=== PATIENT | male | born 1960 ===

== ENCOUNTER 2016-12-06 12:45 | Emergency (ER) | payer OTHER ==
[2016-12-06 12:50] VITALS: RESP 18; TEMP 97.9
[2016-12-06 12:52] VITALS: BMI 25.6
[2016-12-06] MEDS ORDERED: Oxycodone/Acetaminophen 5/325 mg Tab PO STA (13:00)
[2016-12-06] MEDS ORDERED: Oxycodone/Acetaminophen 5/325 mg Tab ONE (13:01)
[2016-12-06] MEDS ORDERED: Lidocaine 2% Inj (20ml) INFIL ONE (13:07)
--- NOTE | 2016-12-06 13:07 | C.PDOC ---
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 Patient sustained laceration to dorsum of right hand. He denies limited ROM or numbness. Time Seen by Provider: 12/06/16 13:00 Chief Complaint (Nursing): Abnormal Skin Integrity History Per: Patient History/Exam Limitations: no limitations Onset/Duration Of Symptoms: Mins Current Symptoms Are (Timing): Still Present Location Of Injury: Right: Hand Quality Of Symptoms: Painful, Swollen. denies: Itching, Draining Recent travel outside of the [place]: No Past Medical History Reviewed: Historical Data, Nursing Documentation, Vital Signs Vital Signs: Last Vital Signs Temp 97.9 F 12/06/16 12:45 Pulse 75 12/06/16 13:59 Resp 18 12/06/16 13:59 BP 148/75 12/06/16 13:59 Pulse Ox 99 12/06/16 14:28 Family History: States: Unknown Family Hx - Social History Hx Alcohol Use: No Hx Substance Use: No - Immunization History Hx Tetanus Toxoid Vaccination: No Hx Influenza Vaccination: No Hx Pneumococcal Vaccination: No Review Of Systems Constitutional: Negative for: Fever, Chills Cardiovascular: Negative for: Chest Pain Respiratory: Negative for: Shortness of Breath Gastrointestinal: Negative for: Nausea, Vomiting Musculoskeletal: Positive for: Hand Pain (right hand pain, swelling, and laceration) Neurological: Negative for: Numbness Physical Exam - Physical Exam Appears: Non-toxic, No Acute Distress Skin: Warm, Dry Head: Atraumatic, Normacephalic Eye(s): bilateral: Normal Inspection Neck: Normal ROM, Supple Chest: Symmetrical, No Deformity Extremity: Normal ROM, Tenderness (to right hand dorsum ), No Pedal Edema, No Calf Tenderness, Capillary Refill (good capillary refill, less than two seconds ), Swelling (Moderate swelling to right hand), Other (6 cm serpentine irregular laceration with contused tissue ) Pulses: Right Radial: Normal Neurological/Psych: Oriented x3, Normal Speech Gait: Steady ED Course And Treatment O2 Sat by Pulse Oximetry: 99 (room air ) Pulse Ox Interpretation: Normal Progress Note: Right hand X-ray was ordered and patient was given Percocet and Tetanus shot. Xray showed no fractures. Laceration repair performed by BRITNEY, patient tolerated well. Bacitracin and sterile dressing was applied. Patient given instructions on wound care and to return for suture removal in 10 days Laceration - Laceration Repair Righ hand laceration Wound Length (In cm): 6 cm Description Of Wound: Irregular, Contused Tissue Wound Cleansed With: Betadine, Sterile Saline Anesthesia: Lidocaine 2% Wound Examination: Irrigated With Saline, No FB With Wound Exploration, No Tendon Injury With Wound Exploration Wound Closure: Suture (9 sutures ) Suture Technique And Material Used: Running (1 running intradermal with 4-0 vicryl), Interrupted (9 sutures), Nylon (4-0) Wound Complexity: Intermediate Disposition Counseled Patient/Family Regarding: Diagnosis, Need For Followup, Rx Given - Disposition Referrals: Clinic,Med Surg [Primary Care Provider] - Disposition: HOME/ ROUTINE Disposition Time: 13:44 Condition: STABLE Additional Instructions: Mantenga el elizabeth limpia y seca. Puede lavarse suavemente con agua y jabn, no use alcohol ni solucin de yodo. Cambie el apsito 1-2 veces al da. Regrese a ER si se presenta fiebre, enrojecimiento o hinchazn alrededor de la herida, pus en la herida. Por favor, siga con henderson mdico de cabecera, clnica, o atenci n de urgencia para la eliminacin de sutura en 10 sethi Keep area clean and dry. May wash gently with soap and water, do not use alcohol or iodine solution. Change dressing 1-2 times daily. Return to ER if fever occurs, redness or swelling around wound, pus in the wound. Please follow up with your primary doctor, clinic, or urgent care for suture removal in 10 days Prescriptions: traMADol [Ultram] 50 mg PO Q8 #14 tab Instructions: Care For Your Stitches (ED) Forms: [employer] (Amharic), Work Excuse Print Language: IRISH - POA Present On Arrival: Falls Or Trauma - Clinical Impression Clinical Impression: Laceration of hand, Contusion of hand, right - Scribe Statement The provider has reviewed the documentation as recorded by the Scribe Ellen Canela All medical record entries made by the Scribe were at my direction and personally dictated by me. I have reviewed the chart and agree that the record accurately reflects my personal performance of the history, physical exam, medical decision making, and the department course for this patient. I have also personally directed, reviewed, and agree with the discharge instructions and disposition.
--- NOTE | 2016-12-06 13:09 | RAD ---
PROCEDURE: Right Hand Radiographs. HISTORY: post trauma COMPARISON: None available. FINDINGS: Suboptimal lateral view. BONES: Question irregularity about the contour of the hamate, radial aspect. No acute displaced fracture identified. JOINTS: No dislocation. SOFT TISSUES: Subcutaneous emphysema. No evidence of radiopaque foreign body. OTHER FINDINGS: None. IMPRESSION: Subcutaneous emphysema. Question irregularity about the contour of the hamate, radial aspect. Recommend clinical correlation and wrist radiographs for further evaluation.
[2016-12-06] MEDS ORDERED: Lidocaine 2% Inj (20ml) ONE (13:10)
[2016-12-06] MEDS ORDERED: Bacitracin 500 Units/gm Oint Foilpak UD ONE (13:11)
[2016-12-06 13:59] VITALS: BP 148/75; PULSE 75
[2016-12-06 14:26] VITALS: O2SAT 99
== END 2016-12-06 14:00 | disposition home or self-care (01) ==
LOC: C.ER 12:45 → SUPCPDRO 12:45 → C.ER 14:00
DX: S61.411A Laceration without foreign body of right hand, initial encounter (principal); W31.9XXA Contact with unspecified machinery, initial encounter; Y93.89 Activity, other specified; Y92.89 Other specified places as the place of occurrence of the external cause; Y99.0 Civilian activity done for income or pay

== ENCOUNTER 2016-12-13 16:24 | Inpatient (IN) | payer OTHER ==
[2016-12-13 16:41] VITALS: BMI 22.5
[2016-12-13] MEDS ORDERED: Piperacillin/Tazobact 3.375 gm 100 ML IV STA (17:11)
[2016-12-13] MEDS ORDERED: Vancomycin 1 GM 1 GM/250 ML BAG IV ONE (17:15)
--- NOTE | 2016-12-13 17:52 | C.PDOC ---
History Of Present Illness 56 y/o male presents to ED for wound check. Patient reports he sustained an injury to his right hand 7 days ago and had stitches placed at ER. Patient reports he noticed pus draining from the site 2 days ago and also notes increased swelling to the area. Denies fever or chills. Time Seen by Provider: 12/13/16 16:54 Chief Complaint (Nursing): Wound Check History Per: Patient History/Exam Limitations: no limitations Onset/Duration Of Symptoms: Days Ago Current Symptoms Are (Timing): Worse Location Of Injury: Right: Hand, Posterior: Hand Recent travel outside of the [place]: No Past Medical History Reviewed: Historical Data, Nursing Documentation, Vital Signs Vital Signs: Last Vital Signs Temp 98.2 F 12/13/16 16:41 Pulse 77 12/13/16 16:41 Resp 18 12/13/16 16:41 BP 156/90 H 12/13/16 16:41 Pulse Ox 100 12/13/16 18:47 - Medical History PMH: No Chronic Diseases Family History: States: Unknown Family Hx - Social History Hx Alcohol Use: No Hx Substance Use: No - Immunization History Hx Tetanus Toxoid Vaccination: No Hx Influenza Vaccination: No Hx Pneumococcal Vaccination: No Review Of Systems Except As Marked, All Systems Reviewed And Found Negative. Constitutional: Negative for: Fever, Chills Skin: Positive for: Other (drainage from wound right hand, +swelling). Negative for: Rash Neurological: Negative for: Weakness, Numbness Physical Exam - Physical Exam Appears: Non-toxic, No Acute Distress Skin: Normal Color, Warm, Dry Head: Atraumatic, Normacephalic Eye(s): bilateral: Normal Inspection Neck: Normal ROM Cardiovascular: Rhythm Regular Respiratory: Normal Breath Sounds Extremity: Normal ROM, Capillary Refill (< 2 sec.), No Deformity, Other ( Moderate swelling to right hand. Erythema surrounding laceration of dorsum of right hand. Purulent discharge from center of wound. Sutures intact. Pulses intact and normal. ) Extremity: Left: Normal Color And Temperature, Normal ROM Pulses: Left Radial: Normal, Right Radial: Normal Neurological/Psych: Oriented x3, Normal Speech, Normal Motor, Normal Sensation Gait: Steady ED Course And Treatment - Laboratory Results Result Diagrams: 12/13/16 17:51 12/13/16 17:51 Lab Interpretation: No Acute Changes O2 Sat by Pulse Oximetry: 100 (RA) Pulse Ox Interpretation: Normal Medical Decision Making Medical Decision Making: Impression: Cellulitis Case discussed with Dr Puentes who also evaluated patient and agrees patient needs IV antibiotics and recommends admission Plan: * Labs * IV Zosyn and Vanco * Cultures Progress: Labs reviewed, no leukocytosis shift or bands. Plan is to admit patient and treat with IV antibiotics. The patient declines admission as recommended for cellulitis and treatment with IV Zosyn and Vanco. This action is against my medical advice to the patient and with informed refusal. The patient was told that this evaluation is necessary and a full explanation of the rationale was given. The risks of refusing were explained to the patient and include, but are not limited to, worsening cellulitis, sepsis, osteomyelitis, compartment syndrome, and permanent disability from untreated condition. The patient has the capacity to make this decision and has the capacity to understand the clinical situation and my explanation of the risks of refusing this admission. The patient voluntarily accepts these risks. Patient states he does not wish to stay in the hospital tonight but will try to return tomorrow. Patient signed AMA form. Disposition - Disposition Disposition: AGAINST MEDICAL ADVICE Disposition Time: 18:43 Condition: STABLE Additional Instructions: Usted tiene infeccin de la mano y sr optado por firmar en contra de los consejos mdicos para la admisin de la infeccin y el tratamiento con antibi ticos intravenosos Por favor asegrese de leah antibiticos y recomendar el regreso al [facility] para chequeo de herida y admisin Prescriptions: Clindamycin [Cleocin] 300 mg PO TID #21 cap Instructions: Cellulitis (DC), Against Medical Advice (ED) Forms: [employer] (Greenlandic) Print Language: IRISH - POA Present On Arrival: None - Clinical Impression Clinical Impression: Cellulitis of right hand, Left against medical advice - PA / JEWELRY ENAMELER / Resident Statement MD/DO has reviewed & agrees with the documentation as recorded. - Scribe Statement The provider has reviewed the documentation as recorded by the Scribe SM All medical record entries made by the Scribe were at my direction and personally dictated by me. I have reviewed the chart and agree that the record accurately reflects my personal performance of the history, physical exam, medical decision making, and the department course for this patient. I have also personally directed, reviewed, and agree with the discharge instructions and disposition.
[2016-12-13] MEDS ORDERED: Vancomycin 1 GM 1 GM/250 ML BAG IVPB ONE (17:53)
[2016-12-13 17:58] LABS: BASO % 0.5 % (0.0-2.0); EOS # 0.1 K/uL (0.0-0.7); EOS % 1.5 % (0.0-4.0); HEMATOCRIT 33.3 % (35.0-51.0); LYMPH # 1.8 K/uL (1.0-4.3); LYMPH % 28.4 % (20.0-40.0); MEAN CELL VOLUME 86.4 fL (80.0-94.0); MEAN CORPUSCULAR HEMOGLOBIN 29.4 pg (27.0-31.0); MEAN CORPUSCULAR HGB CONC 34.1 g/dL (33.0-37.0); MEAN PLATELET VOLUME 7.9 fL (7.2-11.7); MONO # 0.5 K/uL (0.0-0.8); MONO % 8.6 % (0.0-10.0); RED CELL DISTRIBUTION WIDTH 13.7 % (11.5-14.5); WHITE BLOOD COUNT 6.3 K/uL (4.8-10.8)
[2016-12-13 18:06] LABS: CHLORIDE 103 mmol/L (98-107); POTASSIUM 4.5 mmol/L (3.6-5.2); RBC URINE 1 /hpf (0-3); SODIUM 141 mmol/L (132-148); TRANSITIONAL EPITHIAL < 1 /hpf (0-3); URINE BACTERIA RARE (<OCC); URINE BILIRUBIN NEGATIVE (NEGATIVE); URINE BLOOD NEGATIVE (NEGATIVE); URINE COLOR Yellow (YELLOW); URINE GLUCOSE (UA) NORMAL (Normal); URINE KETONE NEGATIVE (NEGATIVE); URINE LEUKOCYTE ESTERASE NEG Leu/uL (Negative); URINE PROTEIN NEGATIVE (NEGATIVE); URINE UROBILINOGEN NORMAL mg/dL (0.2-1.0); WBC URINE 1 /hpf (0-5)
[2016-12-13 18:08] LABS: BILIRUBIN,TOTAL 0.4 mg/dL (0.2-1.3); GFR AFRICAN-AMERICAN > 60
[2016-12-13 18:09] LABS: ALKALINE PHOSPHATASE 82 U/L (38-126); ALT/SGPT 52 U/L (21-72); AST/SGOT 36 U/L (17-59); BLOOD UREA NITROGEN 23 mg/dL (9-20); CARBON DIOXIDE 26 mmol/L (22-30); GLUCOSE,RANDOM 82 mg/dL (75-110)
[2016-12-13 18:10] LABS: CALCIUM 9.1 mg/dl (8.6-10.4)
[2016-12-13] MEDS ORDERED: Piperacillin/Tazobact 3.375 gm 100 ML IVPB ONE (18:20)
[2016-12-14] MEDS ORDERED: Iodixanol 320 mg/ml 150 ml Bottle IV ONE (00:33)
--- NOTE | 2016-12-14 01:44 | CT ---
EXAM: CT Right Upper Extremity With Intravenous Contrast, Hand CLINICAL HISTORY: 56 years old, male; Pain and signs and symptoms; Mass or lump and swelling and other: Abcess; Hand; Right; Additional info: Prior xray of rt hand faxed over to [facility] TECHNIQUE: Axial computed tomography images of the right hand with intravenous contrast. All CT scans at this facility use one or more dose reduction techniques, viz.: automated exposure control; ma/kV adjustment per patient size (including targeted exams where dose is matched to indication; i.e. head); or iterative reconstruction technique. Coronal and sagittal reformatted images were created and reviewed. CONTRAST: 100 mL of VISI administered intravenously. COMPARISON: No relevant prior studies available. FINDINGS: Bones/joints: No acute fracture. Findings suggesting prior fracture deformity within the proximal metacarpal of the fifth digit . This No dislocation. Soft tissues: Marked soft tissue swelling over the dorsum of the right hand without a rim enhancing fluid collection to suggest acute abscess. No abnormal contrast enhancement. IMPRESSION: Marked soft tissue swelling, without rim-enhancing fluid collection.
--- NOTE | 2016-12-14 04:06 | CP.PCM.HP ---
<Jackson Velazco E - Last Filed: 12/14/16 09:00> History of Present Illness - History of Present Illness History of Present Illness: CC: Right Hand Cellulitis HPI: Patient is a 56 year old male with no past medical history who presents to the ED with complaints of right hand swelling and pus drainage s/p laceration repair of the dorsum right hand. 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 Patient stated he reported to [facility] after the injury where he received a laceration repair and discharged with pain medication. Patient reports that he has been having swelling in the hand, pain and pus drainage for the past 2 days. Patient denies fever, chills, nausea, vomiting, chest pain, palpitation, sob, numbness but admits to some tingling in his right fingers. 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 Admits to 3 cigarettes per week but denies ETOH and illicit drug use Medications given in the ED: Zosyn 3.375gm and Vanco 1gm Present on Admission - Present on Admission Any Indicators Present on Admission: No Review of Systems - Constitutional Constitutional: absent: Chills, Fever, Night Sweats - EENT Ears: absent: Dizziness - Cardiovascular Cardiovascular: absent: Chest Pain, Chest Pain at Rest, Diaphoresis, Dyspnea, Lightheadedness, Palpitations, Radiating Pain - Respiratory Respiratory: absent: Dyspnea, Dyspnea on Exertion - Gastrointestinal Gastrointestinal: absent: Abdominal Pain, Constipation, Diarrhea, Nausea, Vomiting - Musculoskeletal Musculoskeletal: Loss of Height, Tingling. absent: Numbness Additional comments: Right hand tingling - Neurological Neurological: Tingling. absent: Dizziness, Numbness, Paresthesias, Weakness Past Patient History - Past Medical History & Family History Past Medical History?: Yes - Past Social History Smoking Status: Unknown If Ever Smoked - CARDIAC Hx Cardiac Disorders: No - PULMONARY Hx Respiratory Disorders: No - NEUROLOGICAL Hx Neurological Disorder: No - HEENT Hx HEENT Problems: Yes Other/Comment: pt uses prescription eyeglasses - RENAL Hx Chronic Kidney Disease: No - ENDOCRINE/METABOLIC Hx Endocrine Disorders: No - HEMATOLOGICAL/ONCOLOGICAL Hx Blood Disorders: No - INTEGUMENTARY Hx Dermatological Problems: No - MUSCULOSKELETAL/RHEUMATOLOGICAL Hx Musculoskeletal Disorders: No Hx Falls: No - GASTROINTESTINAL Hx Gastrointestinal Disorders: No - GENITOURINARY/GYNECOLOGICAL Hx Genitourinary Disorders: No - PSYCHIATRIC Hx Psychophysiologic Disorder: No Hx Substance Use: No - SURGICAL HISTORY Hx Surgeries: No - ANESTHESIA Hx Anesthesia: No Hx Anesthesia Reactions: No Hx Malignant Hyperthermia: No Has any member of the family had a problem w/ anesthesia?: No Meds Home Medications: Home Medication List Medication Instructions Recorded Confirmed Type Clindamycin [Cleocin] 300 mg PO TID #21 cap 12/13/16 Rx Allergies/Adverse Reactions: Allergies Allergy/AdvReac Type Severity Reaction Status Date / Time No Known Allergies Allergy Verified 12/13/16 16:41 Physical Exam - Constitutional Appears: No Acute Distress - Head Exam Head Exam: ATRAUMATIC - Eye Exam Eye Exam: EOMI, Normal appearance - ENT Exam ENT Exam: Mucous Membranes Moist, Normal Exam - Respiratory Exam Respiratory Exam: Clear to Auscultation Bilateral, NORMAL BREATHING PATTERN - Cardiovascular Exam Cardiovascular Exam: REGULAR RHYTHM, +S1, +S2 - GI/Abdominal Exam GI & Abdominal Exam: Normal Bowel Sounds, Soft - Extremities Exam Extremities exam: Positive for: normal inspection. Negative for: calf tenderness, pedal edema, tenderness - Neurological Exam Neurological exam: Alert, Oriented x3 - Psychiatric Exam Psychiatric exam: Normal Affect, Normal Mood - Skin Skin Exam: Normal Color, Warm Results - Vital Signs Recent Vital Signs: Last Vital Signs Temp 98.5 F 12/14/16 00:50 Pulse 84 12/14/16 02:11 Resp 20 12/14/16 02:11 BP 137/86 12/14/16 00:50 Pulse Ox 98 12/14/16 02:11 - Labs Result Diagrams: 12/13/16 17:51 12/13/16 17:51 Assessment & Plan (1) Cellulitis of right hand Assessment and Plan: On admission: * Afebrile and no leukocytosis Labs: * Wound Culture, Gram Stain: Gram positive cocci. F/u Culture * F/u blood culture Imaging: CT right hand: Marked soft tissue swelling, without rim-enhancing fluid collection to suggest acute abscess Medications: * Clindamycin 600mg IV Q6H * Toradol 15mg IV Q6H Surgical consult, Dr. ELGazzar---> Help appreciated * F/u recommendation Status: Acute (2) Prophylactic measure Assessment and Plan: SCDs Protonix 40mg PO daily Florastor 250mg PO BID Status: Acute <Keith Mark P - Last Filed: 12/17/16 19:35> Results - Vital Signs Recent Vital Signs: Last Vital Signs Temp 97.5 F L 12/17/16 16:27 Pulse 66 12/17/16 16:27 Resp 20 12/17/16 16:27 BP 132/75 12/17/16 16:27 Pulse Ox 98 12/17/16 16:27 - Labs Result Diagrams: 12/17/16 07:37 12/17/16 07:37 Labs: Laboratory Results - last 24 hr 12/17/16 12/17/16 07:37 07:37 WBC 5.7 RBC 4.09 L Hgb 11.6 L Hct 35.4 MCV 86.5 MCH 28.5 MCHC 32.9 L RDW 13.6 Plt Count 370 MPV 7.9 Neut % (Auto) 59.7 Lymph % (Auto) 30.5 [place] % (Auto) 6.8 Eos % (Auto) 2.5 Baso % (Auto) 0.5 Neut # 3.4 Lymph # 1.7 [place] # 0.4 Eos # 0.1 Baso # 0.0 Sodium 141 Potassium 5.1 Chloride 101 Carbon Dioxide 27 Anion Gap 18 BUN 22 H Creatinine 1.0 Est GFR ( Amer) > 60 Est GFR (Non-Af Amer) > 60 Random Glucose 94 Calcium 9.2 Total Bilirubin 0.3 AST 18 ALT 34 Alkaline Phosphatase 87 Total Protein 7.5 Albumin 3.4 L Globulin 4.1 H Albumin/Globulin Ratio 0.8 L Attending/Attestation - Attestation I have personally seen and examined this patient.: Yes I have fully participated in the care of the patient.: Yes I have reviewed all pertinent clinical information: Yes Notes (Text): See note on the same day.
--- NOTE | 2016-12-14 04:44 | CP.PCM.PN ---
Subjective - Date & Time of Evaluation Date of Evaluation: 12/14/16 Time of Evaluation: 04:40 - Subjective Subjective: Right hand laceration repair, from crushing injury 7 days back, presenting for swelling in hand, pain x2 days, draining puss today. Denies fever, not on abx, no foreign body, CT hand negative for abscess. Gram stain shows gm positive cocci, patient started on clindamycin iv. Dr Lopez, hand surgery consulted. Patient may need removal of some or most of sutures contaminated with puss. Objective - Vital Signs/Intake and Output Vital Signs (last 24 hours): Temp Pulse Resp BP Pulse Ox 98.5 F 84 20 137/86 98 12/14/16 00:50 12/14/16 02:11 12/14/16 02:11 12/14/16 00:50 12/14/16 02:11 - Medications Medications: Current Medications Clindamycin Phosphate (Cleocin In Normal Saline Addvantage) 600 mg in 50 mls @ 102 mls/hr IVPB Q6H JUANA Ketorolac Tromethamine (Toradol) 15 mg IVP Q6 JUANA Pantoprazole Sodium (Protonix Ec Tab) 40 mg PO DAILY JUANA Pneumococcal Polyvalent Vaccine (Pneumovax 23 Vaccine) 0.5 ml IM .ONCE ONE Stop: 12/15/16 10:01
[2016-12-14] MEDS: Clindamycin 600mg/50ml NS 600 MG/50 ML BAG IVPB SCH ×4 (04:55→21:15)
--- NOTE | 2016-12-14 04:57 | CP.PCM.CON ---
History of Present Illness - History of Present Illness History of Present Illness: Surgery: Dr. Lopez CC: right hand wound infection HPI: Patient is a 56 y/o male who present with right dorsal hand wound draining pus for the past three days. He intially presented to ER on 12/06 for right dorsal hand laceration which was primarily repaired in the ER with a 4-0 running vicryl stitch and interrupted nylons. Patient reports noticing pus about 4 days after repair as well as swelling which prompted ER visit. Patient denies f/c/n/v. PMH: denies Review of Systems - Review of Systems All systems: reviewed and no additional remarkable complaints except Review of Systems: unless stated in HPI Past Patient History - Past Medical History & Family History Past Medical History?: Yes - Past Social History Smoking Status: Unknown If Ever Smoked - CARDIAC Hx Cardiac Disorders: No - PULMONARY Hx Respiratory Disorders: No - NEUROLOGICAL Hx Neurological Disorder: No - HEENT Hx HEENT Problems: Yes Other/Comment: pt uses prescription eyeglasses - RENAL Hx Chronic Kidney Disease: No - ENDOCRINE/METABOLIC Hx Endocrine Disorders: No - HEMATOLOGICAL/ONCOLOGICAL Hx Blood Disorders: No - INTEGUMENTARY Hx Dermatological Problems: No - MUSCULOSKELETAL/RHEUMATOLOGICAL Hx Musculoskeletal Disorders: No Hx Falls: No - GASTROINTESTINAL Hx Gastrointestinal Disorders: No - GENITOURINARY/GYNECOLOGICAL Hx Genitourinary Disorders: No - PSYCHIATRIC Hx Psychophysiologic Disorder: No Hx Substance Use: No - SURGICAL HISTORY Hx Surgeries: No - ANESTHESIA Hx Anesthesia: No Hx Anesthesia Reactions: No Hx Malignant Hyperthermia: No Has any member of the family had a problem w/ anesthesia?: No Meds Home Medications: Home Medication List Medication Instructions Recorded Confirmed Type Clindamycin [Cleocin] 300 mg PO TID #21 cap 12/13/16 Rx Allergies/Adverse Reactions: Allergies Allergy/AdvReac Type Severity Reaction Status Date / Time No Known Allergies Allergy Verified 12/13/16 16:41 - Medications Medications: Current Medications Clindamycin Phosphate (Cleocin In Normal Saline Addvantage) 600 mg in 50 mls @ 102 mls/hr IVPB Q6H JUANA Ketorolac Tromethamine (Toradol) 15 mg IVP Q6 JUANA Pantoprazole Sodium (Protonix Ec Tab) 40 mg PO DAILY JUANA Pneumococcal Polyvalent Vaccine (Pneumovax 23 Vaccine) 0.5 ml IM .ONCE ONE Stop: 12/15/16 10:01 Physical Exam - Constitutional Appears: Non-toxic, No Acute Distress - Head Exam Head Exam: ATRAUMATIC, NORMOCEPHALIC - Eye Exam Eye Exam: EOMI, Normal appearance - ENT Exam ENT Exam: Mucous Membranes Moist - Respiratory Exam Respiratory Exam: NORMAL BREATHING PATTERN. absent: Respiratory Distress - Cardiovascular Exam Cardiovascular Exam: REGULAR RHYTHM. absent: Tachycardia - Extremities Exam Additional comments: right dorsal hand with irregularly shaped laceration approximately 5-6 cm in length w/ purulent fluid in center. entire dorsum of hand in edematous and erythematous. restricted finger flexion 2/2/ edema. full wrist ROM. 2+pulses. No evidence of fluctuance for drainage Results - Vital Signs Recent Vital Signs: Last Vital Signs Temp 98.5 F 12/14/16 00:50 Pulse 84 12/14/16 02:11 Resp 20 12/14/16 02:11 BP 137/86 12/14/16 00:50 Pulse Ox 98 12/14/16 02:11 - Labs Result Diagrams: 12/13/16 17:51 12/13/16 17:51 - Impressions Impression: CT: no evidence of right hand abscess Assessment & Plan - Assessment and Plan (Free Text) Assessment: 56 y/o male s/p right dorsal hand laceration repair now with cellulitis to wound Plan: -cont abx -f/u cultures -betadine soaks TID for 15 mins -keep affected extremity elevated -cont to use and exercise right hand -surgical intervention pending clinical course -further recs per Dr. John Nolasco PGY3
[2016-12-14] MEDS: Pantoprazole 40 mg EC Tab PO SCH (09:36)
[2016-12-14] MEDS ORDERED: Saccharomyces Boulardi 250 mg Cap PO SCH (10:00)
[2016-12-14 10:52] LABS: BASO % 0.4 % (0.0-2.0); EOS # 0.1 K/uL (0.0-0.7); EOS % 0.9 % (0.0-4.0); HEMATOCRIT 32.9 % (35.0-51.0); LYMPH # 1.5 K/uL (1.0-4.3); LYMPH % 24.5 % (20.0-40.0); MEAN CELL VOLUME 86.3 fL (80.0-94.0); MEAN CORPUSCULAR HEMOGLOBIN 28.8 pg (27.0-31.0); MEAN CORPUSCULAR HGB CONC 33.4 g/dL (33.0-37.0); MEAN PLATELET VOLUME 7.9 fL (7.2-11.7); MONO # 0.4 K/uL (0.0-0.8); MONO % 6.1 % (0.0-10.0); RED CELL DISTRIBUTION WIDTH 13.8 % (11.5-14.5); WHITE BLOOD COUNT 6.3 K/uL (4.8-10.8)
[2016-12-14 11:18] LABS: ALB/GLOB RATIO 0.8 (1.0-2.1); ALKALINE PHOSPHATASE 90 U/L (38-126); ALT/SGPT 41 U/L (21-72); AST/SGOT 26 U/L (17-59); BILIRUBIN,TOTAL 0.5 mg/dL (0.2-1.3); BLOOD UREA NITROGEN 20 mg/dL (9-20); CALCIUM 9.1 mg/dl (8.6-10.4); CARBON DIOXIDE 23 mmol/L (22-30); CHLORIDE 100 mmol/L (98-107); GFR AFRICAN-AMERICAN > 60; GLUCOSE,RANDOM 130 mg/dL (75-110); POTASSIUM 4.3 mmol/L (3.6-5.2); SODIUM 138 mmol/L (132-148); TOTAL PROTEIN 7.6 g/dL (6.3-8.3)
[2016-12-14] MEDS: Saccharomyces Boulardi 250 mg Cap PO SCH ×2 (11:31→17:12)
--- NOTE | 2016-12-14 14:03 | CP.PCM.PN ---
<LiveTiffany - Last Filed: 12/14/16 16:38> Subjective - Date & Time of Evaluation Date of Evaluation: 12/14/16 Time of Evaluation: 14:02 - Subjective Subjective: Patient is seen and examined at bedside. Patient denied any acute events overnight. Patient's right hand is bandaged but says he is able to flex and extend his fingers without any pain, however he has trouble with full flexion 2/ 2 swelling. Patient denied any sr/cp/sob/abd pain/f/c/n/v/d. Patient asking about results of the imaging taken of his hand. Objective - Vital Signs/Intake and Output Vital Signs (last 24 hours): Temp Pulse Resp BP Pulse Ox 98.7 F 69 20 110/62 98 12/14/16 07:08 12/14/16 07:08 12/14/16 07:08 12/14/16 07:08 12/14/16 07:08 Intake and Output: 12/14/16 12/14/16 06:59 18:59 Intake Total 170 Balance 170 - Medications Medications: Current Medications Clindamycin Phosphate (Cleocin In Normal Saline Addvantage) 600 mg in 50 mls @ 102 mls/hr IVPB Q6H [facility] Last Admin: 12/14/16 09:36 Dose: 102 mls/hr Ketorolac Tromethamine (Toradol) 15 mg IVP Q6 [facility] Last Admin: 12/14/16 11:54 Dose: 15 mg Pantoprazole Sodium (Protonix Ec Tab) 40 mg PO DAILY [facility] Last Admin: 12/14/16 09:36 Dose: 40 mg Pneumococcal Polyvalent Vaccine (Pneumovax 23 Vaccine) 0.5 ml IM .ONCE ONE Stop: 12/15/16 10:01 Saccharomyces Boulardii (Florastor) 250 mg PO BID [facility] Last Admin: 12/14/16 11:31 Dose: Not Given - Labs Labs: 12/14/16 10:43 12/14/16 10:43 - Constitutional Appears: Non-toxic, No Acute Distress - Head Exam Head Exam: NORMAL INSPECTION - Eye Exam Eye Exam: EOMI - ENT Exam ENT Exam: Mucous Membranes Moist - Respiratory Exam Respiratory Exam: Clear to Ausculation Bilateral, NORMAL BREATHING PATTERN - Cardiovascular Exam Cardiovascular Exam: REGULAR RHYTHM, +S1, +S2 - GI/Abdominal Exam GI & Abdominal Exam: Soft, Normal Bowel Sounds. absent: Distended, Tenderness - Extremities Exam Extremities Exam: absent: Pedal Edema Additional comments: Right hand bandaged and c/d/i. Swelling of fingers noted on the right. 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 No loss of sensation or paralysis of right hand. - Neurological Exam Neurological Exam: Alert, Awake, Oriented x3 - Psychiatric Exam Psychiatric exam: Normal Affect, Normal Mood - Skin Skin Exam: Dry, Intact, Normal Color, Warm Assessment and Plan - Assessment and Plan (Free Text) Assessment: Cellulitis of right hand * Afebrile and no leukocytosis Labs: * Wound Culture * Gram Stain: Gram positive cocci in clusters and chains; F/u Culture and sensitivity * F/u blood culture Imaging: CT right hand: Marked soft tissue swelling, without rim-enhancing fluid collection to suggest acute abscess Medications: * Clindamycin 600mg IV Q6H * Toradol 15mg IV Q6H Surgical consult, Dr. Waldrop * Betadine soaks 15 min TID ID Consult, Dr. Clay * Recs appreciated Prophylactic measure SCDs Protonix 40mg PO daily Florastor 250mg PO BID <Ky Post - Last Filed: 12/14/16 19:12> Objective - Vital Signs/Intake and Output Vital Signs (last 24 hours): Temp Pulse Resp BP Pulse Ox 98.4 F 69 20 128/66 97 12/14/16 15:00 12/14/16 15:00 12/14/16 15:00 12/14/16 15:00 12/14/16 15:00 Intake and Output: 12/14/16 12/15/16 18:59 06:59 Intake Total 500 Balance 500 - Medications Medications: Current Medications Clindamycin Phosphate (Cleocin In Normal Saline Addvantage) 600 mg in 50 mls @ 102 mls/hr IVPB Q6H [facility] Last Admin: 12/14/16 16:00 Dose: 102 mls/hr Ketorolac Tromethamine (Toradol) 15 mg IVP Q6 [facility] Last Admin: 12/14/16 17:12 Dose: 15 mg Pantoprazole Sodium (Protonix Ec Tab) 40 mg PO DAILY [facility] Last Admin: 12/14/16 09:36 Dose: 40 mg Pneumococcal Polyvalent Vaccine (Pneumovax 23 Vaccine) 0.5 ml IM .ONCE ONE Stop: 12/15/16 10:01 Saccharomyces Bobrittneydii (Florastor) 250 mg PO BID [facility] Last Admin: 12/14/16 17:12 Dose: 250 mg - Labs Labs: 12/14/16 10:43 12/14/16 10:43 Attending/Attestation - Attestation I have personally seen and examined this patient.: Yes I have fully participated in the care of the patient.: Yes I have reviewed all pertinent clinical information, including history, physical exam and plan: Yes Notes (Text): 12/14/16 19:07 Patient was seen and examined at 11:10 AM Exam and Assessment/Plan were thoroughly gone over with the Resident Please note that in addition to the above for exam: I removed patient's hand bandage and present on the posterior right hand: there is an irregularly shaped laceration with yellow drainage, sutures, surrounding erythema, warmth/edema. Sensation is intact. Capillary refills is 2 seconds. There is NO cyanosis and patient is able to flex/extend all fingers. NO right axillary lymph adenopathy. Awaiting evaluation by Orthopedics. Ky Post D.O.
--- NOTE | 2016-12-14 22:12 | CP.PCM.CON ---
History of Present Illness - History of Present Illness History of Present Illness: dictated Past Patient History - Past Medical History & Family History Past Medical History?: Yes - Past Social History Smoking Status: Unknown If Ever Smoked - CARDIAC Hx Cardiac Disorders: No - PULMONARY Hx Respiratory Disorders: No - NEUROLOGICAL Hx Neurological Disorder: No - HEENT Hx HEENT Problems: Yes Other/Comment: pt uses prescription eyeglasses - RENAL Hx Chronic Kidney Disease: No - ENDOCRINE/METABOLIC Hx Endocrine Disorders: No - HEMATOLOGICAL/ONCOLOGICAL Hx Blood Disorders: No - INTEGUMENTARY Hx Dermatological Problems: No - MUSCULOSKELETAL/RHEUMATOLOGICAL Hx Musculoskeletal Disorders: No Hx Falls: No - GASTROINTESTINAL Hx Gastrointestinal Disorders: No - GENITOURINARY/GYNECOLOGICAL Hx Genitourinary Disorders: No - PSYCHIATRIC Hx Psychophysiologic Disorder: No Hx Substance Use: No - SURGICAL HISTORY Hx Surgeries: No - ANESTHESIA Hx Anesthesia: No Hx Anesthesia Reactions: No Hx Malignant Hyperthermia: No Has any member of the family had a problem w/ anesthesia?: No Meds Home Medications: Home Medication List Medication Instructions Recorded Confirmed Type Clindamycin [Cleocin] 300 mg PO TID #21 cap 12/13/16 Rx Allergies/Adverse Reactions: Allergies Allergy/AdvReac Type Severity Reaction Status Date / Time No Known Allergies Allergy Verified 12/13/16 16:41 - Medications Medications: Current Medications Clindamycin Phosphate (Cleocin In Normal Saline Addvantage) 600 mg in 50 mls @ 102 mls/hr IVPB Q6H [facility] Last Admin: 12/14/16 21:15 Dose: 102 mls/hr Ketorolac Tromethamine (Toradol) 15 mg IVP Q6 [facility] Last Admin: 12/14/16 17:12 Dose: 15 mg Pantoprazole Sodium (Protonix Ec Tab) 40 mg PO DAILY [facility] Last Admin: 12/14/16 09:36 Dose: 40 mg Pneumococcal Polyvalent Vaccine (Pneumovax 23 Vaccine) 0.5 ml IM .ONCE ONE Stop: 12/15/16 10:01 Saccharomyces Boulardii (Florastor) 250 mg PO BID [facility] Last Admin: 12/14/16 17:12 Dose: 250 mg Results - Vital Signs Recent Vital Signs: Last Vital Signs Temp 98.4 F 12/14/16 15:00 Pulse 69 12/14/16 15:00 Resp 20 12/14/16 15:00 BP 128/66 12/14/16 15:00 Pulse Ox 97 12/14/16 15:00 - Labs Result Diagrams: 12/14/16 10:43 12/14/16 10:43 Labs: Laboratory Results - last 24 hr 12/14/16 12/14/16 10:43 10:43 WBC 6.3 RBC 3.82 L Hgb 11.0 L Hct 32.9 L MCV 86.3 MCH 28.8 MCHC 33.4 RDW 13.8 Plt Count 349 MPV 7.9 Neut % (Auto) 68.1 Lymph % (Auto) 24.5 [place] % (Auto) 6.1 Eos % (Auto) 0.9 Baso % (Auto) 0.4 Neut # 4.3 Lymph # 1.5 [place] # 0.4 Eos # 0.1 Baso # 0.0 Sodium 138 Potassium 4.3 Chloride 100 Carbon Dioxide 23 Anion Gap 20 BUN 20 Creatinine 0.8 Est GFR ( Amer) > 60 Est GFR (Non-Af Amer) > 60 Random Glucose 130 H Calcium 9.1 Total Bilirubin 0.5 AST 26 ALT 41 Alkaline Phosphatase 90 Total Protein 7.6 Albumin 3.4 L Globulin 4.2 H Albumin/Globulin Ratio 0.8 L
[2016-12-15] MEDS: Clindamycin 600mg/50ml NS 600 MG/50 ML BAG IVPB SCH ×4 (04:42→21:37)
--- NOTE | 2016-12-15 06:51 | CON ---
INFECTIOUS DISEASE CONSULT DATE: REQUESTING PHYSICIAN: Dr. Mark. HISTORY OF PRESENT ILLNESS: This patient is a 56-year-old male. He was admitted through emergency room yesterday. As he came in, he is status post laceration of the right hand. 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 He reported he had been having swelling and pus draining from there and the whole hand was getting swollen. He has been on IV antibiotics since last night and he says that they are helping and his fingers still remain swollen. He does have a dressing and he has some sutures on his hand, which he says thought to be removed yesterday, but has not been removed. He does have a Betadine dressing on his right hand, but he says he is getting better. Denies any other complaints. ALLERGIES: HE IS NOT ALLERGIC TO ANY MEDICINE. PAST MEDICAL HISTORY: Significant for using eye glasses, otherwise, he has no other positive history that we noted. FAMILY HISTORY: Noncontributory. MEDICATION: He has not been taking any medicines. HOME MEDICATIONS: He was on clindamycin 600 mg p.o. t.i.d., which was started yesterday. SOCIAL HISTORY: He lives with his family. 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 REVIEW OF SYSTEMS: All negative and he is not diabetic. He has no other involvement of any system. He denied any dizziness. Denied any ear, nose, and throat problem. Denies any chest pain. No shortness of breath. No abdominal pain, nausea, vomiting, or diarrhea. No joint problems and he did complain of right hand tingling and loss of height. PHYSICAL EXAMINATION: HEENT: Head is atraumatic. Pupils are reacting to light. HEENT exam is unremarkable. NECK: Supple. LUNGS: Clear. HEART: S1 and S2 is regular. ABDOMEN: Soft and nontender. No guarding. No rigidity present. EXTREMITIES: Have no edema, clubbing, or cyanosis. NEURO: He has a normal mood. Right hand is swollen and with a dressing. The fingers are swollen, but he says the swelling has been decreasing. I will wait for the surgical input. LABORATORY DATA: White count is 6.3, hemoglobin 11 and creatinine 0.8, glucose is 130 today. There is a wound culture, which is growing GPCs. Blood culture x2 are negative and there was actually a CAT scan done of the upper extremity, which shows mild soft tissue swelling without reminiscing fluid collections. PLAN: Will need antibiotics. Does not seem to like have an abscess. He is on clindamycin 600 mg q.6 hours and he seems to be doing better, so we will continue that and we will follow with other attending and he may need to have the wound opened as there is pus. Annel Clay MD
[2016-12-15 07:37] LABS: BASO % 0.5 % (0.0-2.0); EOS # 0.2 K/uL (0.0-0.7); EOS % 3.6 % (0.0-4.0); HEMATOCRIT 31.7 % (35.0-51.0); LYMPH # 1.4 K/uL (1.0-4.3); LYMPH % 29.5 % (20.0-40.0); MEAN CELL VOLUME 86.1 fL (80.0-94.0); MEAN CORPUSCULAR HEMOGLOBIN 29.2 pg (27.0-31.0); MEAN CORPUSCULAR HGB CONC 33.9 g/dL (33.0-37.0); MEAN PLATELET VOLUME 7.8 fL (7.2-11.7); MONO # 0.4 K/uL (0.0-0.8); MONO % 8.8 % (0.0-10.0); NRBC % 0.1 % (0.0-2.0); WHITE BLOOD COUNT 4.6 K/uL (4.8-10.8)
[2016-12-15 08:08] LABS: CHLORIDE 104 mmol/L (98-107); SODIUM 137 mmol/L (132-148)
[2016-12-15 08:09] LABS: POTASSIUM 4.6 mmol/L (3.6-5.2)
[2016-12-15 08:12] LABS: ALB/GLOB RATIO 0.9 (1.0-2.1); ALKALINE PHOSPHATASE 77 U/L (38-126); ALT/SGPT 41 U/L (21-72); AST/SGOT 22 U/L (17-59); BILIRUBIN,TOTAL 0.5 mg/dL (0.2-1.3); BLOOD UREA NITROGEN 31 mg/dL (9-20); CALCIUM 8.5 mg/dl (8.6-10.4); CARBON DIOXIDE 25 mmol/L (22-30); GFR AFRICAN-AMERICAN > 60; GLUCOSE,RANDOM 89 mg/dL (75-110); TOTAL PROTEIN 7.2 g/dL (6.3-8.3)
[2016-12-15] MEDS ORDERED: Pneumococcal 23-Valent Vaccine IM ONE (10:00)
[2016-12-15] MEDS: Pantoprazole 40 mg EC Tab PO SCH (11:15)
[2016-12-15] MEDS: Saccharomyces Boulardi 250 mg Cap PO SCH ×2 (13:01→17:26)
--- NOTE | 2016-12-15 18:05 | CP.PCM.PN ---
Subjective - Date & Time of Evaluation Date of Evaluation: 12/15/16 Time of Evaluation: 14:40 - Subjective Subjective: Hospitalist Progress Note Patient was seen and examined at 2:40 PM 12/15/16. 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 CT Right Hand with contrast did not show any acute fracture and did show marked soft tissue swelling without ring enhancing fluid collection. He was started on Clindamycin IV and admitted for further treatment and evaluation. Upon FULL ROS: Pounding pain in the right hand if he tries to flex the fingers but this has decreased in intensity today NO chest pain/palpitations NO SOB/cough NO abdominal pain NO n/v/d/c NO pain with urination NO paresthesias/loss of sensation NO other complaints upon FULL ROS Exam: General: AAOx3, NAD HEENT: NCA, EOMI, PERRLA, NO lymphadenopathy, NO pharyngeal erythema/exudate, Mucous Membranes are moist, Nasal Turbinates are nonedematous/nonerythematous Cardio: NS1 and NS2, NO M/R/G Respiratory: CTA Bilaterally, NO R/R/W GI: BSx4, Soft, NT, ND, NO HSM, NO guarding/rebound tenderness Ext: Pulses are strong and equal, Capillary Refill is 2 seconds, I removed patient's hand bandage and present on the posterior right hand: there is an irregularly shaped laceration with yellow drainage, sutures, surrounding erythema, warmth/edema which has improved compared to 12/14/16. Sensation is intact. Capillary refills is 2 seconds. There is NO cyanosis and patient is able to flex/extend all fingers. NO right axillary lymph adenopathy. Neuro: CN II through XII are grossly intact Assessment and Plan: 1). Right Hand Cellulitis Clinidamycin 600 mg IV Q6H Wound Culture shows Staph aureus which is sensitive to Clindamycin Blood Cutlure is negative to date Betadine 3x/day Awaiting to hear back from Orthopedics Dr. Major whom I was told is covering for Dr. Lopez. [employer] Machine Tender Mara called Dr. Major's office 12/15/16 and provided them with patient information. His help will be greatly appreciated: do the sutures need to be removed and the wound cleaned and then re-sutured? Toradol 15 mg IV Q6H PRN Pain ID Dr. Clay help is also appreciated 2). Prophylaxis Protonix 40 mg PO 1x/day Florastor 250 mg PO 2x/day Patient has a DVT risk score of 1 (based upon his age of 56) therefore SCDs only were ordered Ky Post D.O. Objective - Vital Signs/Intake and Output Vital Signs (last 24 hours): Temp Pulse Resp BP Pulse Ox 97.7 F 64 20 116/65 97 12/15/16 15:00 12/15/16 15:00 12/15/16 15:00 12/15/16 15:00 12/15/16 15:00 Intake and Output: 12/15/16 12/15/16 06:59 18:59 Intake Total 290 550 Balance 290 550 - Medications Medications: Current Medications Clindamycin Phosphate (Cleocin In Normal Saline Addvantage) 600 mg in 50 mls @ 102 mls/hr IVPB Q6H [facility] Last Admin: 12/15/16 16:23 Dose: 102 mls/hr Ketorolac Tromethamine (Toradol) 15 mg IVP Q6 [facility] Last Admin: 12/15/16 13:00 Dose: Not Given Pantoprazole Sodium (Protonix Ec Tab) 40 mg PO DAILY [facility] Last Admin: 12/15/16 11:15 Dose: 40 mg Saccharomyces Boulardii (Florastor) 250 mg PO BID [facility] Last Admin: 12/15/16 17:26 Dose: 250 mg - Labs Labs: 12/15/16 07:25 12/15/16 07:25
--- NOTE | 2016-12-15 18:07 | CP.PCM.PN ---
Subjective - Date & Time of Evaluation Date of Evaluation: 12/15/16 Time of Evaluation: 18:05 - Subjective Subjective: Patient seen and examined at bedside. Patient doing well with no new complaints at this time. Patient says he thinks the swelling is going down in his hand. Patient had some questions about whether or not the stitches need to come out. Patient denies F/C, CP/SOB, AP/N/V/D/C, loss of sensation or tingling in fingers. Objective - Vital Signs/Intake and Output Vital Signs (last 24 hours): Temp Pulse Resp BP Pulse Ox 97.7 F 64 20 116/65 97 12/15/16 15:00 12/15/16 15:00 12/15/16 15:00 12/15/16 15:00 12/15/16 15:00 Intake and Output: 12/15/16 12/15/16 06:59 18:59 Intake Total 290 550 Balance 290 550 - Medications Medications: Current Medications Clindamycin Phosphate (Cleocin In Normal Saline Addvantage) 600 mg in 50 mls @ 102 mls/hr IVPB Q6H [facility] Last Admin: 12/15/16 16:23 Dose: 102 mls/hr Ketorolac Tromethamine (Toradol) 15 mg IVP Q6 [facility] Last Admin: 12/15/16 13:00 Dose: Not Given Pantoprazole Sodium (Protonix Ec Tab) 40 mg PO DAILY [facility] Last Admin: 12/15/16 11:15 Dose: 40 mg Saccharomyces Boulardii (Florastor) 250 mg PO BID [facility] Last Admin: 12/15/16 17:26 Dose: 250 mg - Labs Labs: 12/15/16 07:25 12/15/16 07:25
[2016-12-16] MEDS: Clindamycin 600mg/50ml NS 600 MG/50 ML BAG IVPB SCH ×4 (04:27→21:22)
[2016-12-16 07:27] LABS: BASO % 0.6 % (0.0-2.0); EOS # 0.2 K/uL (0.0-0.7); EOS % 3.6 % (0.0-4.0); HEMATOCRIT 32.8 % (35.0-51.0); LYMPH # 1.5 K/uL (1.0-4.3); LYMPH % 30.8 % (20.0-40.0); MEAN CELL VOLUME 85.8 fL (80.0-94.0); MEAN CORPUSCULAR HEMOGLOBIN 28.7 pg (27.0-31.0); MEAN CORPUSCULAR HGB CONC 33.5 g/dL (33.0-37.0); MEAN PLATELET VOLUME 7.6 fL (7.2-11.7); MONO # 0.4 K/uL (0.0-0.8); MONO % 7.2 % (0.0-10.0); RED CELL DISTRIBUTION WIDTH 13.9 % (11.5-14.5); WHITE BLOOD COUNT 4.9 K/uL (4.8-10.8)
[2016-12-16 07:32] LABS: CHLORIDE 104 mmol/L (98-107)
[2016-12-16 07:33] LABS: POTASSIUM 4.6 mmol/L (3.6-5.2); SODIUM 139 mmol/L (132-148)
[2016-12-16 07:35] LABS: ALB/GLOB RATIO 0.9 (1.0-2.1); ALKALINE PHOSPHATASE 72 U/L (38-126); ALT/SGPT 38 U/L (21-72); AST/SGOT 19 U/L (17-59); BILIRUBIN,TOTAL 0.4 mg/dL (0.2-1.3); BLOOD UREA NITROGEN 25 mg/dL (9-20); CARBON DIOXIDE 25 mmol/L (22-30); GFR AFRICAN-AMERICAN > 60; TOTAL PROTEIN 7.1 g/dL (6.3-8.3)
[2016-12-16 07:36] LABS: CALCIUM 8.6 mg/dl (8.6-10.4); GLUCOSE,RANDOM 88 mg/dL (75-110)
[2016-12-16 07:37] LABS: INR 1.3
[2016-12-16] MEDS: Saccharomyces Boulardi 250 mg Cap PO SCH ×2 (09:14→17:16)
[2016-12-16] MEDS: Pantoprazole 40 mg EC Tab PO SCH (09:14)
--- NOTE | 2016-12-16 09:16 | RAD ---
HISTORY: Surgical clearance COMPARISON: None available. TECHNIQUE: Chest, one view. FINDINGS: LUNGS: No focal consolidation. Please note that chest x-ray has limited sensitivity for the detection of pulmonary masses. PLEURA: No significant pleural effusion identified. No definite pneumothorax . CARDIOVASCULAR: The cardiomediastinal silhouette appears within normal limits of size. OSSEOUS STRUCTURES: No acute osseous abnormality identified. VISUALIZED UPPER ABDOMEN: Unremarkable. OTHER FINDINGS: None. IMPRESSION: No focal consolidation, significant pleural effusion, or definite pneumothorax identified.
--- NOTE | 2016-12-16 10:11 | CP.PCM.PN ---
Subjective - Date & Time of Evaluation Date of Evaluation: 12/16/16 Time of Evaluation: 09:45 - Subjective Subjective: Hospitalist Progress Note Patient was seen and examined at 9:45 AM 12/16/16. 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 CT Right Hand with contrast did not show any acute fracture and did show marked soft tissue swelling without ring enhancing fluid collection. He was started on Clindamycin IV and admitted for further treatment and evaluation. Upon FULL ROS: Pounding pain in the right hand if he tries to flex the fingers upon initial presentation, however this is no longer present NO chest pain/palpitations NO SOB/cough NO abdominal pain NO n/v/d/c NO pain with urination NO paresthesias/loss of sensation NO other complaints upon FULL ROS Exam: General: AAOx3, NAD HEENT: NCA, EOMI, PERRLA, NO lymphadenopathy, NO pharyngeal erythema/exudate, Mucous Membranes are moist, Nasal Turbinates are nonedematous/nonerythematous Cardio: NS1 and NS2, NO M/R/G Respiratory: CTA Bilaterally, NO R/R/W GI: BSx4, Soft, NT, ND, NO HSM, NO guarding/rebound tenderness Ext: Pulses are strong and equal, Capillary Refill is 2 seconds, I removed patient's hand bandage again this morning 12/16/16 and present on the posterior right hand: there is an irregularly shaped laceration with yellow drainage decreased, sutures, surrounding erythema has significantly improved, warmth/ edema which has improved compared to 12/14/16. Sensation is intact. Capillary refills is 2 seconds. There is NO cyanosis and patient is able to flex/extend all fingers. NO right axillary lymph adenopathy. Neuro: CN II through XII are grossly intact Assessment and Plan: 1). Right Hand Cellulitis Clinidamycin 600 mg IV Q6H Wound Culture shows Staph aureus which is sensitive to Clindamycin Blood Cutlure is negative to date Betadine 3x/day Awaiting to hear back from Orthopedics Dr. Major whom I was told is covering for Dr. Lopez. Director Auto Mara called Dr. Major's office 12/15/16 and provided them with patient information. His help will be greatly appreciated: do the sutures need to be removed and the wound cleaned and then re-sutured? Toradol 15 mg IV Q6H PRN Pain ID Dr. Clay help is also appreciated 2). Prophylaxis Protonix 40 mg PO 1x/day Florastor 250 mg PO 2x/day Patient has a DVT risk score of 1 (based upon his age of 56) therefore SCDs only were ordered Ky Post D.O. Objective - Vital Signs/Intake and Output Vital Signs (last 24 hours): Temp Pulse Resp BP Pulse Ox 98 F 59 L 20 137/72 98 12/16/16 08:21 12/16/16 08:21 12/16/16 08:21 12/16/16 08:21 12/16/16 08:21 Intake and Output: 12/16/16 12/16/16 06:59 18:59 Intake Total 600 Balance 600 - Medications Medications: Current Medications Clindamycin Phosphate (Cleocin In Normal Saline Addvantage) 600 mg in 50 mls @ 102 mls/hr IVPB Q6H [facility] Last Admin: 12/16/16 09:14 Dose: 102 mls/hr Pantoprazole Sodium (Protonix Ec Tab) 40 mg PO DAILY [facility] Last Admin: 12/16/16 09:14 Dose: 40 mg Saccharomyces Boulardii (Florastor) 250 mg PO BID [facility] Last Admin: 12/16/16 09:14 Dose: 250 mg - Labs Labs: 12/16/16 07:12 12/16/16 07:12 PT 14.9 SECONDS (9.7-12.2) H 12/16/16 07:12 INR 1.3 12/16/16 07:12 APTT 28 SECONDS (21-34) 12/16/16 07:12
--- NOTE | 2016-12-16 18:41 | CARD ---
APPROVED REPORT EKG Measurement Heart [id number] <Conclusion> Normal sinus rhythm Normal ECG
--- NOTE | 2016-12-16 21:52 | CP.PCM.PN ---
Subjective - Date & Time of Evaluation Date of Evaluation: 12/16/16 Time of Evaluation: 03:35 - Subjective Subjective: dictated Objective - Vital Signs/Intake and Output Vital Signs (last 24 hours): Temp Pulse Resp BP Pulse Ox 97.8 F 59 L 20 133/79 99 12/16/16 15:06 12/16/16 15:06 12/16/16 15:06 12/16/16 15:06 12/16/16 15:06 Intake and Output: 12/16/16 12/17/16 18:59 06:59 Intake Total 50 Balance 50 - Medications Medications: Current Medications Clindamycin Phosphate (Cleocin In Normal Saline Addvantage) 600 mg in 50 mls @ 102 mls/hr IVPB Q6H [facility] Last Admin: 12/16/16 21:22 Dose: 102 mls/hr Pantoprazole Sodium (Protonix Ec Tab) 40 mg PO DAILY [facility] Last Admin: 12/16/16 09:14 Dose: 40 mg Saccharomyces Boulardii (Florastor) 250 mg PO BID [facility] Last Admin: 12/16/16 17:16 Dose: 250 mg - Labs Labs: 12/16/16 07:12 12/16/16 07:12 PT 14.9 SECONDS (9.7-12.2) H 12/16/16 07:12 INR 1.3 12/16/16 07:12 APTT 28 SECONDS (21-34) 12/16/16 07:12
--- NOTE | 2016-12-17 03:14 | CP.PCM.CON ---
Past Patient History - Past Medical History & Family History Past Medical History?: Yes - Past Social History Smoking Status: Unknown If Ever Smoked - CARDIAC Hx Cardiac Disorders: No - PULMONARY Hx Respiratory Disorders: No - NEUROLOGICAL Hx Neurological Disorder: No - HEENT Hx HEENT Problems: Yes Other/Comment: pt uses prescription eyeglasses - RENAL Hx Chronic Kidney Disease: No - ENDOCRINE/METABOLIC Hx Endocrine Disorders: No - HEMATOLOGICAL/ONCOLOGICAL Hx Blood Disorders: No - INTEGUMENTARY Hx Dermatological Problems: No - MUSCULOSKELETAL/RHEUMATOLOGICAL Hx Musculoskeletal Disorders: No Hx Falls: No - GASTROINTESTINAL Hx Gastrointestinal Disorders: No - GENITOURINARY/GYNECOLOGICAL Hx Genitourinary Disorders: No - PSYCHIATRIC Hx Psychophysiologic Disorder: No Hx Substance Use: No - SURGICAL HISTORY Hx Surgeries: No - ANESTHESIA Hx Anesthesia: No Hx Anesthesia Reactions: No Hx Malignant Hyperthermia: No Has any member of the family had a problem w/ anesthesia?: No Meds Home Medications: Home Medication List Medication Instructions Recorded Confirmed Type Clindamycin [Cleocin] 300 mg PO TID #21 cap 12/13/16 Rx Allergies/Adverse Reactions: Allergies Allergy/AdvReac Type Severity Reaction Status Date / Time No Known Allergies Allergy Verified 12/13/16 16:41 - Medications Medications: Current Medications Clindamycin Phosphate (Cleocin In Normal Saline Addvantage) 600 mg in 50 mls @ 102 mls/hr IVPB Q6H [facility] Last Admin: 12/16/16 21:22 Dose: 102 mls/hr Pantoprazole Sodium (Protonix Ec Tab) 40 mg PO DAILY [facility] Last Admin: 12/16/16 09:14 Dose: 40 mg Saccharomyces Boulardii (Florastor) 250 mg PO BID [facility] Last Admin: 12/16/16 17:16 Dose: 250 mg Results - Vital Signs Recent Vital Signs: Last Vital Signs Temp 98.5 F 12/17/16 00:00 Pulse 70 12/17/16 00:00 Resp 20 12/17/16 00:00 BP 120/70 12/17/16 00:00 Pulse Ox 98 12/17/16 00:00 - Labs Result Diagrams: 12/16/16 07:12 12/16/16 07:12 Labs: Laboratory Results - last 24 hr 12/16/16 12/16/16 12/16/16 07:12 07:12 07:12 WBC 4.9 RBC 3.82 L Hgb 11.0 L Hct 32.8 L MCV 85.8 MCH 28.7 MCHC 33.5 RDW 13.9 Plt Count 343 MPV 7.6 Neut % (Auto) 57.8 Lymph % (Auto) 30.8 [place] % (Auto) 7.2 Eos % (Auto) 3.6 Baso % (Auto) 0.6 Neut # 2.8 Lymph # 1.5 [place] # 0.4 Eos # 0.2 Baso # 0.0 PT 14.9 H INR 1.3 APTT 28 Sodium 139 Potassium 4.6 Chloride 104 Carbon Dioxide 25 Anion Gap 15 BUN 25 H Creatinine 0.9 Est GFR ( Amer) > 60 Est GFR (Non-Af Amer) > 60 Random Glucose 88 Calcium 8.6 Total Bilirubin 0.4 AST 19 ALT 38 Alkaline Phosphatase 72 Total Protein 7.1 Albumin 3.4 L Globulin 3.7 Albumin/Globulin Ratio 0.9 L Assessment & Plan (1) Cellulitis of right hand Assessment and Plan: 56 yo Male, RHD, w/ no PMH presented to the ER at on 12/12/16 w/ redness/pain/ drainage R hand since injury at work on 12/06/16. He was seen and treated in the ER at on 12/06/16, dorsal hand complex laceration was irrigated and loosely reapproximated. Dx= R hand #1 complex dorsal laceration #2 cellulitis (improved) #3 small subcutaneous abscess at dorsal laceration s/p R hand bedside I&D of dorsal abscess at dorsal laceration wound 12/16/16 PLAN: R hand: -today, the drainage and cellulitis at the dorsal hand complex wound was significantly improved -there was no indication for formal I&D in the OR today, the collection/ drainage was very small, bedside I&D/ decompression was performed today, stitches from initial repair of laceration left intact -no indication to remove suture and have large complex open wound unless he fails conservative tx, if the sutures need to be removed then he will need formal I&D in the OR and placement of VAC dressing -at this point he is responding well to IV abx and after discussing the case with staff and the pt, he has had significant improvement since admission -he was admitted on 12/12/16, consultation for my input was not placed until afternoon and I evaluated the pt as an inpt in the early AM on 12/16/16 Status: Acute
[2016-12-17] MEDS: Clindamycin 600mg/50ml NS 600 MG/50 ML BAG IVPB SCH ×4 (04:02→21:18)
[2016-12-17 07:49] LABS: BASO % 0.5 % (0.0-2.0); EOS # 0.1 K/uL (0.0-0.7); EOS % 2.5 % (0.0-4.0); HEMATOCRIT 35.4 % (35.0-51.0); LYMPH # 1.7 K/uL (1.0-4.3); LYMPH % 30.5 % (20.0-40.0); MEAN CELL VOLUME 86.5 fL (80.0-94.0); MEAN CORPUSCULAR HEMOGLOBIN 28.5 pg (27.0-31.0); MEAN CORPUSCULAR HGB CONC 32.9 g/dL (33.0-37.0); MEAN PLATELET VOLUME 7.9 fL (7.2-11.7); MONO # 0.4 K/uL (0.0-0.8); MONO % 6.8 % (0.0-10.0); RED CELL DISTRIBUTION WIDTH 13.6 % (11.5-14.5); WHITE BLOOD COUNT 5.7 K/uL (4.8-10.8)
[2016-12-17 08:01] LABS: ALB/GLOB RATIO 0.8 (1.0-2.1); ALKALINE PHOSPHATASE 87 U/L (38-126); ALT/SGPT 34 U/L (21-72); AST/SGOT 18 U/L (17-59); BILIRUBIN,TOTAL 0.3 mg/dL (0.2-1.3); BLOOD UREA NITROGEN 22 mg/dL (9-20); CALCIUM 9.2 mg/dl (8.6-10.4); CARBON DIOXIDE 27 mmol/L (22-30); CHLORIDE 101 mmol/L (98-107); GFR AFRICAN-AMERICAN > 60; GLUCOSE,RANDOM 94 mg/dL (75-110); POTASSIUM 5.1 mmol/L (3.6-5.2); SODIUM 141 mmol/L (132-148); TOTAL PROTEIN 7.5 g/dL (6.3-8.3)
[2016-12-17] MEDS: Pantoprazole 40 mg EC Tab PO SCH (11:00)
[2016-12-17] MEDS: Saccharomyces Boulardi 250 mg Cap PO SCH ×2 (11:00→17:27)
--- NOTE | 2016-12-17 12:49 | CP.PCM.PN ---
Subjective - Date & Time of Evaluation Date of Evaluation: 12/17/16 Time of Evaluation: 12:45 - Subjective Subjective: Hospitalist Progress Note Patient was seen and examined at 12:45 PM 12/17/16. 56 year old male who presented to 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 CT Right Hand with contrast did not show any acute fracture and did show marked soft tissue swelling without ring enhancing fluid collection. He was started on Clindamycin IV and admitted for further treatment and evaluation. Upon FULL ROS: Pounding pain in the right hand if he tries to flex the fingers upon initial presentation, however this is no longer present NO chest pain/palpitations NO SOB/cough NO abdominal pain NO n/v/d/c NO pain with urination NO paresthesias/loss of sensation NO other complaints upon FULL ROS Exam: General: AAOx3, NAD HEENT: NCA, EOMI, PERRLA, NO lymphadenopathy, NO pharyngeal erythema/exudate, Mucous Membranes are moist, Nasal Turbinates are nonedematous/nonerythematous Cardio: NS1 and NS2, NO M/R/G Respiratory: CTA Bilaterally, NO R/R/W GI: BSx4, Soft, NT, ND, NO HSM, NO guarding/rebound tenderness Ext: Pulses are strong and equal, Capillary Refill is 2 seconds, I removed patient's hand bandage again this morning 12/17/16 and present on the posterior right hand: there is an irregularly shaped laceration with yellow drainage decreased, sutures, surrounding erythema has significantly improved, warmth/ edema which has improved compared to 12/14/16. Sensation is intact. Capillary refills is 2 seconds. There is NO cyanosis and patient is able to flex/extend all fingers. NO right axillary lymph adenopathy. Neuro: CN II through XII are grossly intact Assessment and Plan: 1). Right Hand Cellulitis Clinidamycin 600 mg IV Q6H Wound Culture shows Staph aureus which is sensitive to Clindamycin Blood Cutlure 12/13/16 is negative to date Betadine 3x/day Dr. Major evaluated the patient and performed bedside I&D and recommended that the sutures remain intact for now. His help is greatly appreciated. MRI Right was ordered 12/16/16 but not yet performed. I spoke with Nurse Nitin and requested that this be done as soon as possible. We want to make sure that there is no damage to the extensor tendons of the hand. Toradol 15 mg IV Q6H PRN Pain ID Dr. Clay help is also appreciated 2). Prophylaxis Protonix 40 mg PO 1x/day Florastor 250 mg PO 2x/day Patient has a DVT risk score of 1 (based upon his age of 56) therefore SCDs only were ordered Disposition: As long as MRI Right Hand shows no damage to the Extensor Tendons and the patient continues to be fever free, we will discharge patient and have him continue outpatient antibiotic. Ky Post D.O. Objective - Vital Signs/Intake and Output Vital Signs (last 24 hours): Temp Pulse Resp BP Pulse Ox 98.1 F 60 20 128/79 99 12/17/16 08:51 12/17/16 08:51 12/17/16 08:51 12/17/16 08:51 12/17/16 08:51 Intake and Output: 12/17/16 12/17/16 06:59 18:59 Intake Total 500 Balance 500 - Medications Medications: Current Medications Clindamycin Phosphate (Cleocin In Normal Saline Addvantage) 600 mg in 50 mls @ 102 mls/hr IVPB Q6H [facility] Last Admin: 12/17/16 11:00 Dose: 102 mls/hr Pantoprazole Sodium (Protonix Ec Tab) 40 mg PO DAILY [facility] Last Admin: 12/17/16 11:00 Dose: 40 mg Saccharomyces Boulardii (Florastor) 250 mg PO BID [facility] Last Admin: 12/17/16 11:00 Dose: 250 mg - Labs Labs: 12/17/16 07:37 12/17/16 07:37 PT 14.9 SECONDS (9.7-12.2) H 12/16/16 07:12 INR 1.3 12/16/16 07:12 APTT 28 SECONDS (21-34) 12/16/16 07:12
[2016-12-17] MEDS ORDERED: Gadodiamide 287 MG/ML VIAL (15ML) IV ONE (15:27)
--- NOTE | 2016-12-17 19:47 | PN ---
INFECTIOUS DISEASE FOLLOWUP SUBJECTIVE: He says he wants to go home. He feels better. His hand swelling is getter better and he made me talk to his who speaks better Danish than him and she was concerned when the surgeon would remove the stitches, the stitches were to be removed yesterday. I told them that the assembler surgical garment is following and they will decide. Meanwhile, his swelling is decreasing. I opened the wound to see it. PHYSICAL EXAMINATION: VITAL SIGNS: The patient is afebrile. T-max is 97.8, pulse 59, blood pressure 133/79, respirations are 20. He is not running any fevers. HEENT: Head is atraumatic and normocephalic. NECK: Supple. LUNGS: Clear. HEART: S1 and S2 is regular. ABDOMEN: Soft, nontender. No guarding. No rigidity present. EXTREMITIES: Have no edema, clubbing or cyanosis. He remains on clindamycin and Saccharomyces Florastor. LABORATORY DATA: Note. Labs show white count is 4.9, hemoglobin is 11. His BUN is 25, creatinine is 0.9. He has been here and I would suggest them to get the stitches removed prior to his discharge and the wound is drying up at this time, maybe in a day or 2 he could be discharged as he is improving and he came here on the 5th, today is the 4th day, so needs to be evaluated by the surgeon, if they are going to remove the stitches or not, which is his primary concern at this time and to go home. IMPRESSION: He had a trauma to his hand because of the machinery that he uses, accidentally. He said he has been working for many, many years and was surprised how this happened at this time and his wound had Staphylococcus aureus which was sensitive to clindamycin. Annel Clay MD
--- NOTE | 2016-12-18 02:32 | CP.PCM.PN ---
<Tiffany Mancini - Last Filed: 12/18/16 02:29> Subjective - Date & Time of Evaluation Date of Evaluation: 12/18/16 Time of Evaluation: 02:30 - Subjective Subjective: Pt S&E at bedside. Patient was pleasent and resting comfortably in bed. Pt has no new complaints at the time and says he feels great. Patient denies F/C, CP/ SOB, AP/N/V/D. Objective - Vital Signs/Intake and Output Vital Signs (last 24 hours): Temp Pulse Resp BP Pulse Ox 98 F 67 16 101/58 L 99 12/18/16 00:00 12/18/16 00:00 12/18/16 00:00 12/18/16 00:00 12/18/16 00:00 Intake and Output: 12/17/16 12/18/16 18:59 06:59 Intake Total 550 350 Balance 550 350 - Medications Medications: Current Medications Clindamycin Phosphate (Cleocin In Normal Saline Addvantage) 600 mg in 50 mls @ 102 mls/hr IVPB Q6H [facility] Last Admin: 12/17/16 21:18 Dose: 102 mls/hr Ketorolac Tromethamine (Toradol) 15 mg IVP Q6H PRN PRN Reason: Pain, severe (8-10) Last Admin: 12/17/16 22:32 Dose: 15 mg Pantoprazole Sodium (Protonix Ec Tab) 40 mg PO DAILY [facility] Last Admin: 12/17/16 11:00 Dose: 40 mg Saccharomyces Boulardii (Florastor) 250 mg PO BID [facility] Last Admin: 12/17/16 17:27 Dose: 250 mg - Labs Labs: 12/17/16 07:37 12/17/16 07:37 PT 14.9 SECONDS (9.7-12.2) H 12/16/16 07:12 INR 1.3 12/16/16 07:12 APTT 28 SECONDS (21-34) 12/16/16 07:12 - Constitutional Appears: Non-toxic, No Acute Distress - Head Exam Head Exam: NORMAL INSPECTION - Eye Exam Eye Exam: EOMI - ENT Exam ENT Exam: Mucous Membranes Moist - Respiratory Exam Respiratory Exam: Clear to Ausculation Bilateral, NORMAL BREATHING PATTERN - Cardiovascular Exam Cardiovascular Exam: REGULAR RHYTHM, +S1, +S2 - GI/Abdominal Exam GI & Abdominal Exam: Soft, Normal Bowel Sounds. absent: Distended, Tenderness - Extremities Exam Extremities Exam: absent: Pedal Edema Additional comments: Right hand bandaged, C/D/I. Pulses in tact. Sensation in tact. No edema or erythema of fingers. - Back Exam Back Exam: NORMAL INSPECTION - Neurological Exam Neurological Exam: Alert, Awake, Oriented x3 - Psychiatric Exam Psychiatric exam: Normal Affect, Normal Mood - Skin Skin Exam: Dry, Intact, Normal Color, Warm Assessment and Plan - Assessment and Plan (Free Text) Assessment: 1). Right Hand Cellulitis Clinidamycin 600 mg IV Q6H Wound Culture shows Staph aureus which is sensitive to Clindamycin Blood Cutlure 12/13/16 is negative to date Betadine 3x/day Dr. Major evaluated the patient and performed bedside I&D and recommended that the sutures remain intact for now. His help is greatly appreciated. MRI Right was ordered 12/16/16 but not yet performed. I spoke with Nurse Nitin and requested that this be done as soon as possible. We want to make sure that there is no damage to the extensor tendons of the hand. Toradol 15 mg IV Q6H PRN Pain ID Dr. Clay help is also appreciated 2). Prophylaxis Protonix 40 mg PO 1x/day Florastor 250 mg PO 2x/day Patient has a DVT risk score of 1 (based upon his age of 56) therefore SCDs only were ordered Disposition: As long as MRI Right Hand shows no damage to the Extensor Tendons and the patient continues to be fever free, we will discharge patient and have him continue outpatient antibiotic. <Ky Post - Last Filed: 12/18/16 10:03> Objective - Vital Signs/Intake and Output Vital Signs (last 24 hours): Temp Pulse Resp BP Pulse Ox 97.4 F L 68 20 130/70 97 12/18/16 08:00 12/18/16 08:00 12/18/16 08:00 12/18/16 08:00 12/18/16 08:00 Intake and Output: 12/18/16 12/18/16 06:59 18:59 Intake Total 640 Balance 640 - Medications Medications: Current Medications Clindamycin Phosphate (Cleocin In Normal Saline Addvantage) 600 mg in 50 mls @ 102 mls/hr IVPB Q6H [facility] Last Admin: 12/18/16 03:32 Dose: 102 mls/hr Ketorolac Tromethamine (Toradol) 15 mg IVP Q6H PRN PRN Reason: Pain, severe (8-10) Last Admin: 12/17/16 22:32 Dose: 15 mg Pantoprazole Sodium (Protonix Ec Tab) 40 mg PO DAILY [facility] Last Admin: 12/17/16 11:00 Dose: 40 mg Saccharomyces Boulardii (Florastor) 250 mg PO BID [facility] Last Admin: 12/17/16 17:27 Dose: 250 mg - Labs Labs: 12/18/16 08:30 12/18/16 08:30 PT 14.9 SECONDS (9.7-12.2) H 12/16/16 07:12 INR 1.3 12/16/16 07:12 APTT 28 SECONDS (21-34) 12/16/16 07:12 Attending/Attestation - Attestation I have personally seen and examined this patient.: Yes I have fully participated in the care of the patient.: Yes I have reviewed all pertinent clinical information, including history, physical exam and plan: Yes Notes (Text): 12/18/16 09:57 Hospitalist Progress Note Patient was seen and examined at 9:45 AM 12/18/16. 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 CT Right Hand with contrast did not show any acute fracture and did show marked soft tissue swelling without ring enhancing fluid collection. He was started on Clindamycin IV and admitted for further treatment and evaluation. Upon FULL ROS: Pounding pain in the right hand if he tries to flex the fingers upon initial presentation, however this is no longer present NO chest pain/palpitations NO SOB/cough NO abdominal pain NO n/v/d/c NO pain with urination NO paresthesias/loss of sensation NO other complaints upon FULL ROS Exam: General: AAOx3, NAD HEENT: NCA, EOMI, PERRLA, NO lymphadenopathy, NO pharyngeal erythema/exudate, Mucous Membranes are moist, Nasal Turbinates are nonedematous/nonerythematous Cardio: NS1 and NS2, NO M/R/G Respiratory: CTA Bilaterally, NO R/R/W GI: BSx4, Soft, NT, ND, NO HSM, NO guarding/rebound tenderness Ext: Pulses are strong and equal, Capillary Refill is 2 seconds, I removed patient's hand bandage again this morning 12/17/16 and present on the posterior right hand: there is an irregularly shaped laceration with yellow drainage decreased, sutures, surrounding erythema has significantly improved, warmth/ edema which has improved compared to 12/14/16. Sensation is intact. Capillary refills is 2 seconds. There is NO cyanosis and patient is able to flex/extend all fingers. NO right axillary lymph adenopathy. Neuro: CN II through XII are grossly intact Assessment and Plan: 1). Right Hand Cellulitis Clinidamycin 600 mg IV Q6H (started 12/14/16) Wound Culture shows Staph aureus which is sensitive to Clindamycin Blood Cutlure 12/13/16 is negative to date Betadine 3x/day Dr. Major evaluated the patient and performed bedside I&D and recommended that the sutures remain intact for now. His help is greatly appreciated. MRI Right was ordered 12/16/16 and done and the results are still pending at the time of my exam. As long as there are no damages to the extensor tendons of the Right Hand we can discharge patient to home with Clindamycin 300 mg PO Q6H through and including 12/27/16. Patient will also need to continue a Probiotic while on Clindamycin (but not within 2 hours within Clindamycin dose) and for 30 days after 12/27/16. He will need follow up with Dr. Nicholas Carlton. I spoke with patient's Niece Roshan Gandara [phone] (patient gave permission to discuss care with her) and explained the above Toradol 15 mg IV Q6H PRN Pain ID Dr. Clay help is also appreciated 2). Prophylaxis Protonix 40 mg PO 1x/day Florastor 250 mg PO 2x/day Patient has a DVT risk score of 1 (based upon his age of 56) therefore SCDs only were ordered Ky Post D.O.
[2016-12-18] MEDS: Clindamycin 600mg/50ml NS 600 MG/50 ML BAG IVPB SCH ×4 (03:32→21:23)
[2016-12-18 08:39] LABS: BASO % 0.7 % (0.0-2.0); EOS # 0.2 K/uL (0.0-0.7); EOS % 3.1 % (0.0-4.0); HEMATOCRIT 35.3 % (35.0-51.0); LYMPH # 1.9 K/uL (1.0-4.3); LYMPH % 30.6 % (20.0-40.0); MEAN CELL VOLUME 86.9 fL (80.0-94.0); MEAN CORPUSCULAR HEMOGLOBIN 28.4 pg (27.0-31.0); MEAN CORPUSCULAR HGB CONC 32.6 g/dL (33.0-37.0); MEAN PLATELET VOLUME 7.7 fL (7.2-11.7); MONO # 0.4 K/uL (0.0-0.8); RED CELL DISTRIBUTION WIDTH 13.8 % (11.5-14.5); WHITE BLOOD COUNT 6.2 K/uL (4.8-10.8)
[2016-12-18 08:53] LABS: CHLORIDE 106 mmol/L (98-107); POTASSIUM 4.3 mmol/L (3.6-5.2); SODIUM 139 mmol/L (132-148)
[2016-12-18 08:56] LABS: BLOOD UREA NITROGEN 32 mg/dL (9-20); CARBON DIOXIDE 24 mmol/L (22-30); GFR AFRICAN-AMERICAN > 60
[2016-12-18 08:57] LABS: CALCIUM 8.6 mg/dl (8.6-10.4); GLUCOSE,RANDOM 84 mg/dL (75-110); MAGNESIUM 1.9 mg/dL (1.6-2.3); PHOSPHOROUS 3.1 mg/dL (2.5-4.5)
[2016-12-18] MEDS: Saccharomyces Boulardi 250 mg Cap PO SCH ×2 (10:35→17:16)
[2016-12-18] MEDS: Pantoprazole 40 mg EC Tab PO SCH (10:35)
[2016-12-19] MEDS: Clindamycin 600mg/50ml NS 600 MG/50 ML BAG IVPB SCH ×4 (03:50→22:01)
[2016-12-19 07:17] LABS: BASO % 0.9 % (0.0-2.0); EOS # 0.2 K/uL (0.0-0.7); EOS % 3.7 % (0.0-4.0); HEMATOCRIT 34.8 % (35.0-51.0); LYMPH # 1.7 K/uL (1.0-4.3); LYMPH % 30.7 % (20.0-40.0); MEAN CELL VOLUME 86.4 fL (80.0-94.0); MEAN CORPUSCULAR HEMOGLOBIN 28.7 pg (27.0-31.0); MEAN CORPUSCULAR HGB CONC 33.2 g/dL (33.0-37.0); MEAN PLATELET VOLUME 7.7 fL (7.2-11.7); MONO # 0.4 K/uL (0.0-0.8); MONO % 6.7 % (0.0-10.0); NRBC % 0.1 % (0.0-2.0); WHITE BLOOD COUNT 5.5 K/uL (4.8-10.8)
[2016-12-19 07:50] LABS: CHLORIDE 103 mmol/L (98-107); POTASSIUM 4.3 mmol/L (3.6-5.2); SODIUM 138 mmol/L (132-148)
[2016-12-19 07:53] LABS: BLOOD UREA NITROGEN 22 mg/dL (9-20); CARBON DIOXIDE 26 mmol/L (22-30); GFR AFRICAN-AMERICAN > 60; GLUCOSE,RANDOM 87 mg/dL (75-110)
[2016-12-19 07:54] LABS: CALCIUM 9.1 mg/dl (8.6-10.4); PHOSPHOROUS 3.8 mg/dL (2.5-4.5)
--- NOTE | 2016-12-19 09:57 | CP.PCM.PN ---
<Michelle Chu V - Last Filed: 12/19/16 17:50> Objective - Vital Signs/Intake and Output Vital Signs (last 24 hours): Temp Pulse Resp BP Pulse Ox 98 F 63 20 144/77 98 12/19/16 10:26 12/19/16 10:26 12/19/16 10:26 12/19/16 10:26 12/19/16 10:26 Intake and Output: 12/19/16 12/19/16 06:59 18:59 Intake Total 730 Balance 730 - Medications Medications: Current Medications Clindamycin Phosphate (Cleocin In Normal Saline Addvantage) 600 mg in 50 mls @ 102 mls/hr IVPB Q6H [facility] Last Admin: 12/19/16 10:01 Dose: 102 mls/hr Ketorolac Tromethamine (Toradol) 15 mg IVP Q6H PRN PRN Reason: Pain, severe (8-10) Last Admin: 12/17/16 22:32 Dose: 15 mg Pantoprazole Sodium (Protonix Ec Tab) 40 mg PO DAILY [facility] Last Admin: 12/19/16 10:01 Dose: 40 mg Saccharomyces Boulardii (Florastor) 250 mg PO BID [facility] Last Admin: 12/19/16 10:01 Dose: 250 mg - Labs Labs: 12/19/16 07:04 12/19/16 07:04 PT 14.9 SECONDS (9.7-12.2) H 12/16/16 07:12 INR 1.3 12/16/16 07:12 APTT 28 SECONDS (21-34) 12/16/16 07:12 Attending/Attestation - Attestation I have personally seen and examined this patient.: Yes I have fully participated in the care of the patient.: Yes I have reviewed all pertinent clinical information, including history, physical exam and plan: Yes Notes (Text): Patient seen, examined and case discussed with day-time resident. Patient seen at at 12:20PM on 12/19/16 during day-time rounds. Patient reports he is doing better. Denies fever, denies chills, denies chest pain, denies shortness of breathe, denies cough, denies abdominal pain, denies constipation, denies dysuria. Patient reports strength over right hand is little bit better. patient has dressing over the right hand. Mild erythema, 4 sutures. irregular laceration, erythema overlying laceration. Seen with day-time resident, since this is my first time with the patient, appears improved. Denies numbness, denies tinging. With patient's permission, I spoke with his niece Ashanti Gandara [phone] (patient gave permission to discuss care with her) given MRI was not available at time of my exam. Discussed with orthopedic following completion of MRI; stable from his standpoint for discharge; and advise for patient to follow-up with his workers compensation in place. Discussed with patient with niece, Cherelle Gandara at bedside, they understand he must have active workers compensation in place. Paperwork provided by case- management for patient to fill. Patient and niece report he reported his injury the first day with his boss and reports he was told he will be covered. Assessment/Plan 1). Right Hand Cellulitis Hand Laceration * Orthopedic (Dr. Baxter) on consult-->help appreciated * Stable from his perspective, patient will need to follow-up with him as outpatient with workers compensation and for suture removal * Infectious Disease (Dr. Clay) on consult-->help appreciated * Clindamycin 600 mg IV Q6H (started 12/14/16; Day 6) * Discussed with Dr. Clay, recommended for ten course of Augmentin 875mg PO bid for ten days * Wound Culture (12/13/16) shows Staph aureus which is sensitive to Clindamycin ARSEN <0.25 * Blood Culture (12/13/16) no growth after 5 days X2 * MRI (12/19/16): enhancing wall collection at the dorsal aspect of the proximal 3rd metacarpal bone likely represents subcutaneous seroma at the skin and subcutaneous laceration. Adjacent extensor tendons are intact without evidence of interruption or abnormal signal to suggest significance strain or tendon tear; subcutaneous soft tissue abnormal signal and thickening consistent with the patient's known hx of cellulitis and subcutaneous inflammatory/ infectious process. subcutaneous enhancing wall small collection at the dorsal aspect of the proximal 3rd metacarpal bone measures approximately 1.2 cm consistent w abscess formation. further findings per report * Bedside ID performed by orthopedic during hospitalization * Betadine 3x/day * Toradol 15 mg IV Q6H PRN Pain 2). Prophylaxis * Protonix 40 mg PO 1x/day * Florastor 250 mg PO 2x/day * Patient has a DVT risk score of 1 (based upon his age of 56) therefore SCDs only were ordered Disposition: * Per ortho, patient is stable from their standpoint for discharge. Will need to follow-up with orthopedic with workers compensation for both suture removal and follow-up from hospital. * Discussed with case management in regards to patient's hand injury which he reports sustained at work; he reports he had discussed with his supervisor cd area, Ab Cannon, and reports it will be covered by work; last discussion per case management's note from yesterday reports it will not. I spoke with Tonya, from Case Management, who will speak her colleague, Adelita and follow-up with the patient. * Patient/ patient's family need to be taught wound care instructions prior to discharge. * patient does not have a primary care doctor; patient recommended to follow-up with the hospital to establish care at the [facility] ). I do not believe our clinic covers worker's compensation. * Patient as outpatient will complete ten day course of Augmentin; discussed with infectious disease. <Tiffany Mancini - Last Filed: 12/19/16 18:41> Subjective - Date & Time of Evaluation Date of Evaluation: 12/19/16 Time of Evaluation: 09:57 - Subjective Subjective: Pt S&E at bedside. Patient was pleasent and resting comfortably in bed. Pt has no new complaints at the time and says he feels great. Patient says he has only a little pain in his right hand which he rates a 3/10. He states that it exudes only a little bit of white pus but he is able to move his hand comfortably. He also complains of slight itching in his right hand as well. He says hes eating and sleeping well. Patient denies F/C, CP/SOB, AP/N/V/D. Objective - Vital Signs/Intake and Output Vital Signs (last 24 hours): Temp Pulse Resp BP Pulse Ox 97.9 F 62 18 137/65 100 12/19/16 00:16 12/19/16 00:16 12/19/16 00:16 12/19/16 00:16 12/19/16 00:16 Intake and Output: 12/19/16 12/19/16 06:59 18:59 Intake Total 730 Balance 730 - Medications Medications: Current Medications Clindamycin Phosphate (Cleocin In Normal Saline Addvantage) 600 mg in 50 mls @ 102 mls/hr IVPB Q6H [facility] Last Admin: 12/19/16 03:50 Dose: 102 mls/hr Ketorolac Tromethamine (Toradol) 15 mg IVP Q6H PRN PRN Reason: Pain, severe (8-10) Last Admin: 12/17/16 22:32 Dose: 15 mg Pantoprazole Sodium (Protonix Ec Tab) 40 mg PO DAILY [facility] Last Admin: 12/18/16 10:35 Dose: 40 mg Saccharomyces Boulardii (Florastor) 250 mg PO BID [facility] Last Admin: 12/18/16 17:16 Dose: 250 mg - Labs Labs: 12/19/16 07:04 12/19/16 07:04 PT 14.9 SECONDS (9.7-12.2) H 12/16/16 07:12 INR 1.3 12/16/16 07:12 APTT 28 SECONDS (21-34) 12/16/16 07:12 - Constitutional Appears: Non-toxic, No Acute Distress - Head Exam Head Exam: ATRAUMATIC, NORMAL INSPECTION, NORMOCEPHALIC - Eye Exam Eye Exam: EOMI - ENT Exam ENT Exam: Mucous Membranes Moist - Respiratory Exam Respiratory Exam: Clear to Ausculation Bilateral, NORMAL BREATHING PATTERN - Cardiovascular Exam Cardiovascular Exam: REGULAR RHYTHM, +S1, +S2 - GI/Abdominal Exam GI & Abdominal Exam: Soft, Normal Bowel Sounds. absent: Distended, Tenderness - Extremities Exam Extremities Exam: absent: Pedal Edema Additional comments: Right hand bandaged, C/D/I. Pulses in tact. Sensation in tact. No edema or erythema of fingers. - Neurological Exam Neurological Exam: Alert, Awake, Oriented x3 - Psychiatric Exam Psychiatric exam: Normal Affect, Normal Mood - Skin Skin Exam: Dry, Intact, Normal Color, Warm Assessment and Plan - Assessment and Plan (Free Text) Assessment: 1). Right Hand Cellulitis Clinidamycin 600 mg IV Q6H Wound Culture shows Staph aureus which is sensitive to Clindamycin Blood Cutlure 12/13/16 is negative to date Betadine 3x/day Dr. Major evaluated the patient and performed bedside I&D and recommended that the sutures remain intact for now. His help is greatly appreciated. MRI Right was ordered 12/16/16 and showed no damages to the extensor tendons of the Right Hand. We can discharge patient to home with Clindamycin 300 mg PO Q6H through and including 12/27/16. Patient will also need to continue a Probiotic while on Clindamycin (but not within 2 hours within Clindamycin dose) and for 30 days after 12/27/16. He will need follow up with Dr. Nicholas Carlton. Patient's Niece Roshan Gandara [phone] is aware of this plan (patient gave permission to discuss care with her). Patient was given paperwork to be filled out for workers compensation. Toradol 15 mg IV Q6H PRN Pain ID Dr. Clay help is also appreciated 2). Prophylaxis Protonix 40 mg PO 1x/day Florastor 250 mg PO 2x/day Patient has a DVT risk score of 1 (based upon his age of 56) therefore SCDs only were ordered Disposition: patient likely to be discharged 12/20 as discussed above.
[2016-12-19] MEDS: Pantoprazole 40 mg EC Tab PO SCH (10:01)
[2016-12-19] MEDS: Saccharomyces Boulardi 250 mg Cap PO SCH ×2 (10:01→17:58)
[2016-12-19 10:27] VITALS: RESP 20
--- NOTE | 2016-12-19 13:49 | MRI ---
PROCEDURE: MRI of the right hand with and without IV contrast. 12/17/2016 HISTORY: cellulitis, evaluate for osteomyelitis COMPARISON: Comparison is made to the previous x-ray of the right hand dated 12/06/2016 TECHNIQUE: Axial coronal and sagittal MRI images of the right hand were obtained before and after IV contrast administration. FINDINGS: There are inflammatory soft tissue changes and edema seen at the wrist more prominent at the dorsal aspect of the wrist and proximal metacarpal region. There is subcutaneous enhancing wall collection seen at the dorsal aspect of the 3rd carpometacarpal joint and proximal 3rd metacarpal bone measures 1.3 x 1.3 centimeters suggestive of subcutaneous abscess. There is also enhancing wall tract extending from this subcutaneous abscess deep to the medial/ ulnar aspect of the right wrist. There is additional enhancing wall fluid collection at the medial/ulnar aspect of the wrist measures 11 x 9.7 millimeter also suggestive of abscess formation. There is diffuse increased signal in the subcutaneous tissue and muscles at the level of the right wrist and proximal portion of the right hand suggestive of cellulitis and myositis. There is mild increased bone marrow signal seen at the carpal and proximal metacarpal bones likely represent reactive bone marrow edema. There is no definite evidence of cortical destruction or significant periosteal thickening to suggest acute osteomyelitis. There are moderate osteoarthritic changes associated with multiple small subcortical cystic formation more prominent at the lunate and hamate bones as well as around the 1st carpal/metacarpal joint secondary to osteoarthritis. IMPRESSION: Subcutaneous soft tissue abnormal signal and thickening consistent with the patient's known history of cellulitis and subcutaneous inflammatory/infectious process. Subcutaneous enhancing wall small collection at the dorsal aspect of the proximal 3rd metacarpal bone measures approximately 1.3 centimeter consistent with abscess formation. There is suspicious for small tract extending from the subcutaneous dorsal abscess to the deep and medial aspect of the right wrist. Additional enhancing wall collection at the medial/ ulnar aspect of the right wrist measures 11 x 9.7 millimeter also suggestive of abscess formation. Diffuse abnormal signal in the soft tissue including the muscles around the right wrist and proximal right hand consistent with myositis. No convincing evidence for osteomyelitis. Moderate osteoarthritic changes associated with small subcortical cystic formation more prominent around the 1st carpometacarpal joint. Preliminary report was submitted by [facility] Radiology.
--- NOTE | 2016-12-19 21:20 | CP.PCM.PN ---
Subjective - Date & Time of Evaluation Date of Evaluation: 12/19/16 Time of Evaluation: 05:30 - Subjective Subjective: dictated Objective - Vital Signs/Intake and Output Vital Signs (last 24 hours): Temp Pulse Resp BP Pulse Ox 98.1 F 67 20 117/73 98 12/19/16 15:15 12/19/16 15:15 12/19/16 15:15 12/19/16 15:15 12/19/16 15:15 - Medications Medications: Current Medications Clindamycin Phosphate (Cleocin In Normal Saline Addvantage) 600 mg in 50 mls @ 102 mls/hr IVPB Q6H [facility] Last Admin: 12/19/16 16:50 Dose: 102 mls/hr Ketorolac Tromethamine (Toradol) 15 mg IVP Q6H PRN PRN Reason: Pain, severe (8-10) Last Admin: 12/17/16 22:32 Dose: 15 mg Pantoprazole Sodium (Protonix Ec Tab) 40 mg PO DAILY [facility] Last Admin: 12/19/16 10:01 Dose: 40 mg Saccharomyces Boulardii (Florastor) 250 mg PO BID [facility] Last Admin: 12/19/16 17:58 Dose: 250 mg - Labs Labs: 12/19/16 07:04 12/19/16 07:04 PT 14.9 SECONDS (9.7-12.2) H 12/16/16 07:12 INR 1.3 12/16/16 07:12 APTT 28 SECONDS (21-34) 12/16/16 07:12
--- NOTE | 2016-12-19 22:56 | PN ---
DATE: SUBJECTIVE: The patient is feeling better. He was seen by the orthopedic surgeon and he did a small I&D and the wound is looking better. He is still on IV antibiotics clindamycin. He does not want to remove the sutures at this time, to have an open wound, so we will follow the surgeon's recommendation. He denies any diarrhea. No abdominal pain. No nausea. No vomiting. The finger swelling is coming down and swelling on the dorsum of the hand is also decreasing. PHYSICAL EXAMINATION: VITAL SIGNS: T-max is 98.1, pulse 67, blood pressure 117/73, and respirations are 20. LUNGS: Clear. HEART: S1 and S2, is regular. ABDOMEN: Soft and nontender. No guarding. No rigidity present. EXTREMITIES: Right hand is improving. There is still something they were putting some medication on, it appears moist and he is looking better. We will discuss the plan with the Dr. . LABORATORY DATA: White count is 5.5, hemoglobin and hematocrit is unremarkable. Labs are noted. Micro montanez, the culture grew Staphylococcus aureus and the Staphylococcus aureus is riley resistant, but oxacillin sensitive and it is very sensitive to moxifloxacin, even to Levaquin and clindamycin and to Cipro. So, probably good idea would to put him on Cipro 500 mg b.i.d. for 10 days and that will care of the hand. The patient probably can be discharged when decided by the medical team and I can start him on Cipro from tomorrow morning and if it is decided, clindamycin can be discontinued. He can follow with the surgeon as an outpatient. Also to give him acidophilus with Cipro, as he has been on clindamycin. Annel Clay MD
[2016-12-20] MEDS: Clindamycin 600mg/50ml NS 600 MG/50 ML BAG IVPB SCH ×2 (04:06→10:58)
[2016-12-20 07:38] LABS: BASO % 0.8 % (0.0-2.0); EOS # 0.2 K/uL (0.0-0.7); HEMATOCRIT 37.3 % (35.0-51.0); LYMPH # 2.2 K/uL (1.0-4.3); LYMPH % 37.5 % (20.0-40.0); MEAN CELL VOLUME 86.2 fL (80.0-94.0); MEAN CORPUSCULAR HGB CONC 33.7 g/dL (33.0-37.0); MONO # 0.3 K/uL (0.0-0.8); MONO % 4.8 % (0.0-10.0); NRBC % 0.1 % (0.0-2.0); RED CELL DISTRIBUTION WIDTH 14.1 % (11.5-14.5); WHITE BLOOD COUNT 5.9 K/uL (4.8-10.8)
[2016-12-20 08:09] LABS: CHLORIDE 102 mmol/L (98-107); POTASSIUM 4.5 mmol/L (3.6-5.2); SODIUM 138 mmol/L (132-148)
[2016-12-20 08:11] LABS: AST/SGOT 20 U/L (17-59); BILIRUBIN,TOTAL 0.5 mg/dL (0.2-1.3); CARBON DIOXIDE 24 mmol/L (22-30); GFR AFRICAN-AMERICAN > 60; TOTAL PROTEIN 8.3 g/dL (6.3-8.3)
[2016-12-20 08:12] LABS: ALKALINE PHOSPHATASE 78 U/L (38-126); ALT/SGPT 26 U/L (21-72); BLOOD UREA NITROGEN 26 mg/dL (9-20); CALCIUM 9.4 mg/dl (8.6-10.4); GLUCOSE,RANDOM 85 mg/dL (75-110); MAGNESIUM 1.9 mg/dL (1.6-2.3); PHOSPHOROUS 4.3 mg/dL (2.5-4.5)
[2016-12-20] MEDS: Pantoprazole 40 mg EC Tab PO SCH (10:58)
[2016-12-20] MEDS: Saccharomyces Boulardi 250 mg Cap PO SCH (10:58)
[2016-12-20 16:51] VITALS: BP 122/63; PULSE 58; TEMP 98.1; O2SAT 98
--- NOTE | 2016-12-20 18:32 | CP.PCM.DIS ---
<Tiffany Mancini - Last Filed: 12/20/16 18:29> Provider - Provider Date of Admission: 12/13/16 23:36 Attending physician: Michelle Chu DO Consults: Dr. Obed Amaya Time Spent in preparation of Discharge (in minutes): 35 Diagnosis - Discharge Diagnosis (1) Cellulitis of right hand Status: Acute Comment: Please see summary for more details. Hospital Course - Lab Results Lab Results: Most Recent Lab Values WBC 5.9 K/uL (4.8-10.8) 12/20/16 07:28 RBC 4.33 Mil/uL (4.40-5.90) L 12/20/16 07:28 Hgb 12.6 g/dL (12.0-18.0) 12/20/16 07:28 Hct 37.3 % (35.0-51.0) 12/20/16 07:28 MCV 86.2 fL (80.0-94.0) 12/20/16 07:28 MCH 29.0 pg (27.0-31.0) 12/20/16 07:28 MCHC 33.7 g/dL (33.0-37.0) 12/20/16 07:28 RDW 14.1 % (11.5-14.5) 12/20/16 07:28 Plt Count 437 K/uL (130-400) H 12/20/16 07:28 MPV 8.0 fL (7.2-11.7) 12/20/16 07:28 Neut % (Auto) 53.9 % (50.0-75.0) 12/20/16 07:28 Lymph % (Auto) 37.5 % (20.0-40.0) 12/20/16 07:28 Wheeler % (Auto) 4.8 % (0.0-10.0) 12/20/16 07:28 Eos % (Auto) 3.0 % (0.0-4.0) 12/20/16 07:28 Baso % (Auto) 0.8 % (0.0-2.0) 12/20/16 07:28 Neut # 3.2 K/uL (1.8-7.0) 12/20/16 07:28 Lymph # 2.2 K/uL (1.0-4.3) 12/20/16 07:28 Wheeler # 0.3 K/uL (0.0-0.8) 12/20/16 07:28 Eos # 0.2 K/uL (0.0-0.7) 12/20/16 07:28 Baso # 0.0 K/uL (0.0-0.2) 12/20/16 07:28 PT 14.9 SECONDS (9.7-12.2) H 12/16/16 07:12 INR 1.3 12/16/16 07:12 APTT 28 SECONDS (21-34) 12/16/16 07:12 Sodium 138 mmol/L (132-148) 12/20/16 07:28 Potassium 4.5 mmol/L (3.6-5.2) 12/20/16 07:28 Chloride 102 mmol/L (98-107) 12/20/16 07:28 Carbon Dioxide 24 mmol/L (22-30) 12/20/16 07:28 Anion Gap 17 (10-20) 12/20/16 07:28 BUN 26 mg/dL (9-20) H 12/20/16 07:28 Creatinine 1.0 MG/DL (0.8-1.5) 12/20/16 07:28 Est GFR ( Amer) > 60 12/20/16 07:28 Est GFR (Non-Af Amer) > 60 12/20/16 07:28 Random Glucose 85 mg/dL (75-110) 12/20/16 07:28 Calcium 9.4 mg/dl (8.6-10.4) 12/20/16 07:28 Phosphorus 4.3 mg/dL (2.5-4.5) 12/20/16 07:28 Magnesium 1.9 mg/dL (1.6-2.3) 12/20/16 07:28 Total Bilirubin 0.5 mg/dL (0.2-1.3) 12/20/16 07:28 AST 20 U/L (17-59) 12/20/16 07:28 ALT 26 U/L (21-72) 12/20/16 07:28 Alkaline Phosphatase 78 U/L (38-126) 12/20/16 07:28 Total Protein 8.3 g/dL (6.3-8.3) 12/20/16 07:28 Albumin 4.1 g/dL (3.5-5.0) 12/20/16 07:28 Globulin 4.2 gm/dL (2.2-3.9) H 12/20/16 07:28 Albumin/Globulin Ratio 1.0 (1.0-2.1) 12/20/16 07:28 Urine Color Yellow (YELLOW) 12/13/16 17:51 Urine Clarity Clear (Clear) 12/13/16 17:51 Urine pH 5.0 (5.0-8.0) 12/13/16 17:51 Ur Specific [place] 1.019 (1.003-1.030) 12/13/16 17:51 Urine Protein Negative mg/dL (NEGATIVE) 12/13/16 17:51 Urine Glucose (UA) Normal mg/dL (Normal) 12/13/16 17:51 Urine Ketones Negative mg/dL (NEGATIVE) 12/13/16 17:51 Urine Blood Negative (NEGATIVE) 12/13/16 17:51 Urine Nitrate Negative (NEGATIVE) 12/13/16 17:51 Urine Bilirubin Negative (NEGATIVE) 12/13/16 17:51 Urine Urobilinogen Normal mg/dL (0.2-1.0) 12/13/16 17:51 Ur Leukocyte Esterase Neg Elizabeth/uL (Negative) 12/13/16 17:51 Urine WBC (Auto) 1 /hpf (0-5) 12/13/16 17:51 Urine RBC (Auto) 1 /hpf (0-3) 12/13/16 17:51 Ur Transition Epith Cell < 1 /hpf (0-3) 12/13/16 17:51 Urine Bacteria Rare (<OCC) 12/13/16 17:51 - Hospital Course Hospital Course: Upon admission: Patient is a 56 year old male with no past medical history who presents to the ED with complaints of right hand swelling and pus drainage s/p laceration repair of the dorsum right hand. 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 Patient stated he reported to [facility] after the injury where he received a laceration repair and discharged with pain medication. Patient reports that he has been having swelling in the hand, pain and pus drainage for the past 2 days. Patient denies fever, chills, nausea, vomiting, chest pain, palpitation, sob, numbness but admits to some tingling in his right fingers. Hospital course: Patient was admitted for right hand swelling and pus drainage s/p laceration repair of the dorsum of the right hand. He received an Upper Extremity CT on 12/13 which showed marked soft tissue swelling without rim-enhancing fluid collection. Surgery (Dr. Amaya) was consulted on 12/14/16 and she suggested to continue antibiotics, obtain F/U cultures, use betadine soaks, and to keep the extremity elevated. Surgical clearance was done in case of need for OR. The patient received a CXR on 12/15/16 for surgical clearance and it showed no focal consolidation, significant pleural effusion, or definite pneumothorax. He also received an ECG that day which showed normal sinus rhythm. Infectious disease ( Dr. Clay) was consulted as well on 12/15/16 and concluded that the patient should continue with Clindamycin 600mg q6hrs with possible opening of the wound due to the pus. The patient underwent an Upper Extremity MRI on 12/16/16 which revealed subcutaneous soft tissue abnormal signal and thickening, subcutaneous enhancing wall small collection at the dorsal aspect of the proximal 3rd metacarpal bone measuring approximately 1.3 cm consistent with abscess formation. The imaging was suspicious for a small tract extending from the subcutaneous dorsal abscess to the deep and medial aspect of the right wrist. There also was additional enhancing wall collection at the medial/ulnar aspect of the right wrist measuring 11 x 9.7mm suggestive of abscess formation. There was also a diffuse abnormal signal in the soft tissue including the muscles around the right wrist and proximal right hand consistent with myositis. Moderate osteoarthritic changes associated with small subcortical cystic formation more prominent around the 1st carpometacarpal joint were also seen. Surgery (Dr. Baxter) followed up with the patient and concluded that there was no indication for a formal I&D in the OR as the collection/drainage was very small, therefore, a bedside I&D decompression was performed with stitches from initial repair of laceration left intact. Upon Discharge: Patient was seen and examined at bedside, denies F/C, GOLDEN, CP, SOB, N/V/D/C, abdominal pain, dysuria, and LE pain or swelling. Patient states that he does not have any pain in his right hand but only complains of some itching. Patient is clear for discharge per Dr. Chu. Patient is to take Ciprofloxacin 500 mg BID for one month. Patient was educated on wound care and told to f/u with orthopedic surgery once his workmans comp was complete. He was told that if this could not be done by one month, he should come back to the ED here for wound check. Patient was told to follow up with the [facility] for basic healthcare screening. Please note that this is only a summary of events. For more details, please see complete medical record. - Date & Time of H&P Date of H&P: 12/14/16 Time of H&P: 04:06 Discharge Exam - Head Exam Head Exam: ATRAUMATIC, NORMAL INSPECTION, NORMOCEPHALIC - Eye Exam Eye Exam: EOMI - ENT Exam ENT Exam: Mucous Membranes Moist - Respiratory Exam Respiratory Exam: Clear to PA & Lateral, UNREMARKABLE - Cardiovascular Exam Cardiovascular Exam: REGULAR RHYTHM, +S1, +S2 - GI/Abdominal Exam GI & Abdominal Exam: Normal Bowel Sounds, Soft, Unremarkable. absent: Distended , Tenderness - Extremities Exam Additional comments: Bandage on right hand c/d/i. - Neurological Exam Neurological exam: Alert, Oriented x3 - Psychiatric Exam Psychiatric exam: Normal Affect, Normal Mood - Skin Skin Exam: Dry, Intact, Normal Color, Warm Discharge Plan - Discharge Medications Prescriptions: Ciprofloxacin HCl [Cipro] 500 mg PO BID #60 tablet Clindamycin [Cleocin] 300 mg PO TID #21 cap - Follow Up Plan Condition: FAIR Disposition: HOME/ ROUTINE Instructions: Ciprofloxacin (By mouth), Cellulitis (DC) Additional Instructions: Wound care mix equal amounts of saline and betadine in container and soak wound for 15 minutes 3 times a day .after each soaking apply sterile dressing and wrap with aleat wound care demonstated to patient.Patient verbalized understanding. Discontinue clindamycin per . Continue ciprofloxacin as prescribed. Referrals: Ayleen Amaya MD [Staff Provider] - <Michelle Chu V - Last Filed: 12/20/16 22:31> Provider - Provider Date of Admission: 12/13/16 23:36 Attending physician: Michelle Chu, Hospital Course - Lab Results Lab Results: Most Recent Lab Values WBC 5.9 K/uL (4.8-10.8) 12/20/16 07:28 RBC 4.33 Mil/uL (4.40-5.90) L 12/20/16 07:28 Hgb 12.6 g/dL (12.0-18.0) 12/20/16 07:28 Hct 37.3 % (35.0-51.0) 12/20/16 07: MCV 86.2 fL (80.0-94.0) 12/20/16 07:28 MCH 29.0 pg (27.0-31.0) 12/20/16 07: MCHC 33.7 g/dL (33.0-37.0) 12/20/16 07: RDW 14.1 % (11.5-14.5) 12/20/16 07:28 Plt Count 437 K/uL (130-400) H 12/20/16 07:28 MPV 8.0 fL (7.2-11.7) 12/20/16 07:28 Neut % (Auto) 53.9 % (50.0-75.0) 12/20/16 07:28 Lymph % (Auto) 37.5 % (20.0-40.0) 12/20/16 07:28 Wheeler % (Auto) 4.8 % (0.0-10.0) 12/20/16 07:28 Eos % (Auto) 3.0 % (0.0-4.0) 12/20/16 07: Baso % (Auto) 0.8 % (0.0-2.0) 12/20/16 07:28 Neut # 3.2 K/uL (1.8-7.0) 12/20/16 07:28 Lymph # 2.2 K/uL (1.0-4.3) 12/20/16 07:28 Wheeler # 0.3 K/uL (0.0-0.8) 12/20/16 07:28 Eos # 0.2 K/uL (0.0-0.7) 12/20/16 07:28 Baso # 0.0 K/uL (0.0-0.2) 12/20/16 07:28 PT 14.9 SECONDS (9.7-12.2) H 12/16/16 07:12 INR 1.3 12/16/16 07:12 APTT 28 SECONDS (21-34) 12/16/16 07:12 Sodium 138 mmol/L (132-148) 12/20/16 07:28 Potassium 4.5 mmol/L (3.6-5.2) 12/20/16 07:28 Chloride 102 mmol/L (98-107) 12/20/16 07:28 Carbon Dioxide 24 mmol/L (22-30) 12/20/16 07:28 Anion Gap 17 (10-20) 12/20/16 07:28 BUN 26 mg/dL (9-20) H 12/20/16 07:28 Creatinine 1.0 MG/DL (0.8-1.5) 12/20/16 07:28 Est GFR ( Amer) > 60 12/20/16 07:28 Est GFR (Non-Af Amer) > 60 12/20/16 07:28 Random Glucose 85 mg/dL (75-110) 12/20/16 07:28 Calcium 9.4 mg/dl (8.6-10.4) 12/20/16 07:28 Phosphorus 4.3 mg/dL (2.5-4.5) 12/20/16 07:28 Magnesium 1.9 mg/dL (1.6-2.3) 12/20/16 07:28 Total Bilirubin 0.5 mg/dL (0.2-1.3) 12/20/16 07:28 AST 20 U/L (17-59) 12/20/16 07:28 ALT 26 U/L (21-72) 12/20/16 07:28 Alkaline Phosphatase 78 U/L (38-126) 12/20/16 07:28 Total Protein 8.3 g/dL (6.3-8.3) 12/20/16 07:28 Albumin 4.1 g/dL (3.5-5.0) 12/20/16 07:28 Globulin 4.2 gm/dL (2.2-3.9) H 12/20/16 07:28 Albumin/Globulin Ratio 1.0 (1.0-2.1) 12/20/16 07:28 Urine Color Yellow (YELLOW) 12/13/16 17:51 Urine Clarity Clear (Clear) 12/13/16 17:51 Urine pH 5.0 (5.0-8.0) 12/13/16 17:51 Ur Specific [place] 1.019 (1.003-1.030) 12/13/16 17:51 Urine Protein Negative mg/dL (NEGATIVE) 12/13/16 17:51 Urine Glucose (UA) Normal mg/dL (Normal) 12/13/16 17:51 Urine Ketones Negative mg/dL (NEGATIVE) 12/13/16 17:51 Urine Blood Negative (NEGATIVE) 12/13/16 17:51 Urine Nitrate Negative (NEGATIVE) 12/13/16 17:51 Urine Bilirubin Negative (NEGATIVE) 12/13/16 17:51 Urine Urobilinogen Normal mg/dL (0.2-1.0) 12/13/16 17:51 Ur Leukocyte Esterase Neg Elizabeth/uL (Negative) 12/13/16 17:51 Urine WBC (Auto) 1 /hpf (0-5) 12/13/16 17:51 Urine RBC (Auto) 1 /hpf (0-3) 12/13/16 17:51 Ur Transition Epith Cell < 1 /hpf (0-3) 12/13/16 17:51 Urine Bacteria Rare (<OCC) 12/13/16 17:51 Attending/Attestation - Attestation I have personally seen and examined this patient.: Yes I have fully participated in the care of the patient.: Yes I have reviewed all pertinent clinical information, including history, physical exam and plan: Yes Notes (Text): Patient seen, examined and case discussed with day-time resident. Patient seen this morning. Patient reports he is feeling better. Swelling over right hand has subsided. Discussed with ortho who came and evaluated patient, patient's hand is improving, patient is stable from his perspective for discharge and to continue current wound care regimen at home. Discussed with case and nursing, who have arranged for teaching for patient and patient's niece prior to discharge today. Resident spoke with ID, Dr. Clay recommended for Ciprofloxocin 500mg bid (60 tabs/0 refills) for 1 month and advised patient to take yogurt with natural probiotic while on antibiotic. Patient is well instructed to complete forms necessary for worker's compensation. Patient is aware orthopedic, Dr. Baxter needs his workers compensation established given his hand wound was sustained at work. Patient advised if any acute changes occurs in terms of pain, rednesses, swelling, to come to the emergency room immediately for evaluation. patient verbalized understanding and agrees. Discussed discharge order and discharge instructions with day-time resident and patient. Patient provided translation in Cambodian to avoid confusion prior to discharge by [place] Cambodian speaking medical student on my service. This is a summary of patient's hospitalization. Please review EMR in entirety for further details Discharge Diagnoses: 1). Right Hand Cellulitis Hand Laceration * Orthopedic (Dr. Baxter) on consult-->help appreciated * Stable from his perspective, patient will need to follow-up with him as outpatient with workers compensation and for suture removal * Infectious Disease (Dr. Clay) on consult-->help appreciated * Clindamycin 600 mg IV Q6H (started 12/14/16; Day 7) * Discussed with Dr. Clay, recommended for month of Ciprofloxocin 500mg PO BID for better compliance following discussion with orthopedic * Wound Culture (12/13/16) shows Staph aureus which is sensitive to Clindamycin ARSEN <0.25 * Blood Culture (12/13/16) no growth after 5 days X2 * MRI (12/19/16): enhancing wall collection at the dorsal aspect of the proximal 3rd metacarpal bone likely represents subcutaneous seroma at the skin and subcutaneous laceration. Adjacent extensor tendons are intact without evidence of interruption or abnormal signal to suggest significance strain or tendon tear; subcutaneous soft tissue abnormal signal and thickening consistent with the patient's known hx of cellulitis and subcutaneous inflammatory/ infectious process. subcutaneous enhancing wall small collection at the dorsal aspect of the proximal 3rd metacarpal bone measures approximately 1.2 cm consistent w abscess formation. further findings per report * Bedside ID performed by orthopedic during hospitalization * Betadine 3x/day * Toradol 15 mg IV Q6H PRN Pain * Wound care to be taught to patient and patient's niece prior to discharge. 2). Prophylaxis * Protonix 40 mg PO 1x/day * Florastor 250 mg PO 2x/day * Patient has a DVT risk score of 1 (based upon his age of 56) therefore SCDs only were ordered Disposition: * Per ortho, patient is stable from their standpoint for discharge. Will need to follow-up with orthopedic with workers compensation for both suture removal and follow-up from hospital-->patient is aware and agrees. 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 * Patient/ patient's family need to be taught wound care instructions prior to discharge. * patient recommended to follow-up with the hospital to establish care at the [facility] ([phone]). * Patient as outpatient will complete 1 month course of Cipro 500mg PO 2x/day only per ID following discussion with Ortho this morning.
== END 2016-12-20 17:55 | disposition home or self-care (01) | DRG 418 ==
LOC: C.ER 16:24 → C.3T 23:36
PROVIDERS: ADMIT Hospitalist; ATTEND Hospitalist
PROC: 0H9FXZZ Drainage of Right Hand Skin, External Approach (ICD-10-PCS; principal; 2016-12-13)
DX: T81.4XXA Infection following a procedure, initial encounter (principal); L03.113 Cellulitis of right upper limb; Y83.8 Other surgical procedures as the cause of abnormal reaction of the patient, or of later complication, without mention of misadventure at the time of the procedure; L02.511 Cutaneous abscess of right hand; B95.61 Methicillin susceptible Staphylococcus aureus infection as the cause of diseases classified elsewhere

== ENCOUNTER 2016-12-23 18:53 | Emergency (ER) | payer OTHER ==
[2016-12-23 18:53] VITALS: BMI 22.5
[2016-12-23 19:37] VITALS: BP 124/75; PULSE 66; RESP 18; TEMP 97.8; O2SAT 99
--- NOTE | 2016-12-23 21:01 | C.PDOC ---
History Of Present Illness 56 yr old male who was admitted for infection of the right hand and was discharged on 12/19/16 on PO Cipro, presents to the ER today for wound check and refill of antibiotics. Patient states he was told to take the antibiotic for 1 month, however he was only given 6 day supply from the pharmacy. Patient reports persistent right hand swelling but not worse than before. Pt states he has not followed up with the hand specialist as of yet because he was unsure of where to follow up. Denies fever, chills, nausea, vomiting, draining from the area, weakness or numbness. Time Seen by Provider: 12/23/16 19:41 Chief Complaint (Nursing): Upper Extremity Problem/Injury History Per: Patient History/Exam Limitations: no limitations Onset/Duration Of Symptoms: Days Past Medical History Reviewed: Historical Data, Nursing Documentation, Vital Signs Vital Signs: Last Vital Signs Temp 97.8 F 12/23/16 19:34 Pulse 66 12/23/16 19:34 Resp 18 12/23/16 19:34 BP 124/75 12/23/16 19:34 Pulse Ox 99 12/24/16 00:46 - [facility] Procedures DRAINAGE OF RIGHT HAND SKIN, EXTERNAL APPROACH (12/13/16) Family History: States: No Known Family Hx - Social History Hx Alcohol Use: No Hx Substance Use: No - Immunization History Hx Tetanus Toxoid Vaccination: No Hx Influenza Vaccination: No Hx Pneumococcal Vaccination: No Review Of Systems Constitutional: Negative for: Fever, Chills Musculoskeletal: Positive for: Other ((+) Infection on the right hand. No draining.) Skin: Positive for: Other (hand wound, right) Neurological: Negative for: Weakness, Numbness Physical Exam - Physical Exam Appears: Non-toxic, No Acute Distress Skin: Warm, Dry, No Rash Head: Atraumatic, Normacephalic Eye(s): bilateral: Normal Inspection Oral Mucosa: Moist Extremity: Capillary Refill (<2 secs), Other ((+) Moderate swelling and minimal erythema to the right hand. swelling involes all fingers except the right thumb. Sutured wound to the mid dorsal aspect of the right hand. No fluctuance. No draining. No warmth. ) Pulses: Left Radial: Normal, Right Radial: Normal Neurological/Psych: Oriented x3, Normal Speech, Normal Motor ED Course And Treatment O2 Sat by Pulse Oximetry: 99 (RA) Pulse Ox Interpretation: Normal Progress Note: Patient was examined by Dr. Williamson at bedside. Advised to continue with Cipro and Keflex was added to the regimen today. Patient was reinstructed on good wound care and instructed to follow up with Dr. Nicholas Quinonez ( Pt understands to call for appointment). Wound was cleaned with Betadine and normal saline. Dressed with Bacitracin. Return precautions were explained and understood by pt Disposition Counseled Patient/Family Regarding: Diagnosis, Need For Followup, Rx Given - Disposition Referrals: Ayleen Altamirano MD [Staff Provider] - [facility] [Outside] [employer] [Outside] Disposition: HOME/ ROUTINE Disposition Time: 20:58 Condition: STABLE Additional Instructions: Sigue con el doctor ortopedico - Dr Altamirano( Llame por chace faye [facility] Regresa si peor Return to ER if worse Prescriptions: Bacitracin Ointment [Bacitracin] 1 applic TOP BID #60 g Cephalexin [Keflex] 500 mg PO QID #28 capsule Ciprofloxacin HCl [Cipro] 500 mg PO BID #20 tab Instructions: Wound Infection (ED) Forms: [facility] (Amharic) Print Language: LIBYAN - Clinical Impression Clinical Impression: Encounter for wound re-check - PA / SECOND TIME WORKER / Resident Statement MD/DO has reviewed & agrees with the documentation as recorded. - Scribe Statement The provider has reviewed the documentation as recorded by the Scribe Peggy Burgos All medical record entries made by the Scribe were at my direction and personally dictated by me. I have reviewed the chart and agree that the record accurately reflects my personal performance of the history, physical exam, medical decision making, and the department course for this patient. I have also personally directed, reviewed, and agree with the discharge instructions and disposition.
== END 2016-12-23 21:13 | disposition home or self-care (01) ==
LOC: C.ER 18:53
DX: Z51.89 Encounter for other specified aftercare (principal)